=== PATIENT | female | born 1975 | race American Indian/Alaskan Native ===

== ENCOUNTER 2018-10-20 17:34 | Inpatient (IN) | payer SELFPAY ==
--- NOTE | 2018-10-20 17:45 | Emergency Department Report ---
Blank Doc - Documentation Documentation: This is a 43-year-old female that presents with chest pain, SOB, and bilateral leg swelling. This initial assessment/diagnostic orders/clinical plan/treatment(s) is/are subject to change based on patient's health status, clinical progression and re- assessment by fellow clinical providers in the ED. Further treatment and workup at subsequent clinical providers discretion. Patient/guardians urged not to elope from the ED as their condition may be serious if not clinically assessed and managed. Initial orders include: 1- Patient sent to MAIN ED for further evaluation and treatment 2- labs 3- EKG 4- CXR
[2018-10-20] MEDS ORDERED: PEPCID IV ONE (18:45)
[2018-10-20] MEDS ORDERED: NITROSTAT SL PRN (18:45)
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
[2018-10-20 19:05] LABS: INR 0.92 (0.87-1.13)
[2018-10-20 19:06] LABS: Partial Thromboplastin Time 26.9 Sec. (24.2-36.6)
[2018-10-20 19:08] LABS: Basophils % (Auto) 0.3 % (0.0-1.8); Eosinophils # (Auto) 0.2 K/mm3 (0.0-0.4); Eosinophils % (Auto) 1.9 % (0.0-4.3); Hematocrit 33.9 % (30.3-42.9); Hemoglobin 10.5 gm/dl (10.1-14.3); Lymphocytes % (Auto) 28.9 % (13.4-35.0); Mean Corpuscular HGB Conc 31 % (30-34); Mean Corpuscular Volume 75 fl (79-97); Monocytes # (Auto) 0.5 K/mm3 (0.0-0.8); Monocytes % (Auto) 4.9 % (0.0-7.3); Platelet Count 261 K/mm3 (140-440); Red Cell Distribution Width 17.8 % (13.2-15.2)
[2018-10-20 19:17] LABS: Alanine Aminotransferase 11 units/L (7-56); Albumin 3.2 g/dL (3.9-5); BUN/Creatinine Ratio 12; Blood Urea Nitrogen 7 mg/dL (7-17); Calcium 8.4 mg/dL (8.4-10.2); Hemolysis Index 10
[2018-10-20] MEDS ORDERED: TYLENOL PO ONE (20:26)
[2018-10-20] MEDS ORDERED: BABY ASPIRIN PO ONE (20:37)
[2018-10-20] MEDS ORDERED: LASIX IV ONE (20:37)
--- NOTE | 2018-10-20 20:43 | XRay Report ---
PROCEDURE: XR CHEST 1V AP TECHNIQUE: Chest radiograph single view. HISTORY: cp COMPARISONS: None . FINDINGS: Heart: Normal. Mediastinum/Vessels: Normal. Lungs/Pleural space: There are bilateral lower lobe infiltrates versus pulmonary edema. There is no pleural effusion or pneumothorax.. Bony thorax: No acute osseous abnormality. Life support devices: None. IMPRESSION: Heart size is normal.. There are bilateral lower lobe infiltrates versus pulmonary edema . There is no pleural effusion or pneumothorax.. This document is electronically signed by Kerwin Owens MD., Oct 20 2018 08:41:51 PM ET
--- NOTE | 2018-10-20 21:30 | Cat Scan Report ---
PROCEDURE: CT ANGIO CHEST TECHNIQUE: Computerized tomographic angiography of the chest was performed after the IV injection of iodinated nonionic contrast including image processing. The image data was postprocessed using 2-di mensional multiplanar reformatted (MPR) and 3-dimensional (MIP and/or volume rendered) techniques. Au tomated exposure control, adjustment of mA and/or kV according to patient size, or iterative reconstr uction dose optimization techniques were utilized. CT DOSE LENGTH PRODUCT: 967.7 mGycm HISTORY: near syncope cp sob COMPARISONS: None . FINDINGS: Heart and pericardium: Normal. Thoracic aorta: There is no thoracic aortic aneurysm or dissection.. Pulmonary vasculature: There is suboptimal contrast opacification of the pulmonary arteries. Distal p ulmonary emboli may not be visible. No obvious proximal emboli are seen.. Lymph nodes: No enlarged thoracic lymph nodes. Lungs: The lungs are expanded. There are no infiltrates, effusions or pneumothoraces.. Musculoskeletal structures: No significant abnormality. Upper abdominal structures: No significant abnormality. IMPRESSION: The heart size is normal. There is no thoracic aortic aneurysm or dissection.. There is suboptimal contrast opacification of the pulmonary arteries. Distal pulmonary emboli may not be visible. No obvious proximal emboli are seen.. The lungs are expanded. There are no infiltrates, effusions or pneumothoraces.. This document is electronically signed by Kerwin Owens MD., Oct 20 2018 09:28:18 PM ET
--- NOTE | 2018-10-20 21:32 | Cat Scan Report ---
PROCEDURE: CT head without contrast. TECHNIQUE: Computerized tomography of the head was performed without contrast material. CT DOSE LENGTH PRODUCT: 958 mGycm HISTORY: Near syncope. COMPARISONS: None. FINDINGS: The ventricles are normal in size. The medina matter and white matter appear normal. There are no mass lesions. There is no intracranial hemorrhage. The calvarium appears intact. The mastoid air cells and paranasal sinuses are well aerated. IMPRESSION: Normal study. This document is electronically signed by Teddy Roach MD., Oct 20 2018 09:30:11 PM ET
[2018-10-20] MEDS ORDERED: DILAUDID IV PRN (22:21)
[2018-10-20] MEDS ORDERED: SODIUM CHLORIDE FLUSH SYRINGE 10 ML IV PRN (22:21)
[2018-10-20] MEDS ORDERED: PERCOCET 5/325 PO PRN (22:21)
[2018-10-20] MEDS ORDERED: AMBIEN PO PRN (22:21)
[2018-10-20] MEDS ORDERED: TYLENOL PO PRN (22:21)
[2018-10-20] MEDS ORDERED: ZOFRAN IV PRN (22:21)
--- NOTE | 2018-10-20 22:56 | History and Physical Report ---
History of Present Illness Date of examination: 10/20/18 Chief complaint: "I almost passed out" History of present illness: Patient is a 43-year-old -[place] female with history of chronic lower back pain and morbid obesity who presented to the ED on account of near syncope. She has associated left-sided chest pain, shortness of breath, bilateral leg swelling with pain, dry cough, diaphoresis, headaches and dizziness. She denies fever, chills, orthopnea or PND. Past History Past Medical History: other (chronic lower back pain, morbid obesity) Past Surgical History: Other (ovarian cyst removal) Social history: no significant social history (patient denies tobacco, alcohol or illicit drug use) Family history: other (grandmother of heart attack at 85 years old) Medications and Allergies Allergies Allergy/AdvReac Type Severity Reaction Status Date / Time No Known Allergies Allergy Verified 10/20/18 22:40 Active Meds: Active Medications Acetaminophen (Tylenol) 650 mg PO Q4H PRN PRN Reason: Pain MILD(1-3)/Fever >100.5/AZAR Docusate Sodium (Colace) 100 mg PO BID JOELLE Enoxaparin Sodium (Lovenox) 40 mg SUB-Q QDAY JOELLE Famotidine (Pepcid) 20 mg PO DAILY JOELLE Hydromorphone HCl (Dilaudid) 0.5 mg IV Q3H PRN PRN Reason: Pain , Severe (7-10) Nitroglycerin (Nitrostat) 0.4 mg SL .Q5MIN PRN PRN Reason: Chest Pain Last Admin: 10/20/18 20:50 Dose: 0.4 mg Documented by: Ondansetron HCl (Zofran) 4 mg IV Q8H PRN PRN Reason: Nausea And Vomiting Oxycodone/Acetaminophen (Percocet 5/325) 1 tab PO Q6H PRN PRN Reason: Pain, Moderate (4-6) Sodium Chloride (Sodium Chloride Flush Syringe 10 Ml) 10 ml IV BID JOELLE Sodium Chloride (Sodium Chloride Flush Syringe 10 Ml) 10 ml IV PRN PRN PRN Reason: LINE FLUSH Zolpidem Tartrate (Ambien) 5 mg PO QHS PRN PRN Reason: Insomnia Review of Systems All systems: negative (except as documented in the HPI, 14 point system reviewed were negative) Exam - Constitutional Vitals: Temp Pulse Resp BP Pulse Ox 98.4 F 79 13 151/82 97 10/20/18 19:06 10/20/18 20:30 10/20/18 21:16 10/20/18 21:31 10/20/18 21:31 General appearance: Present: no acute distress - EENT Eyes: Present: PERRL, EOM intact ENT: hearing intact, clear oral mucosa - Neck Neck: Present: supple, normal ROM - Respiratory Respiratory effort: normal Respiratory: bilateral: CTA - Cardiovascular Rhythm: regular Heart Sounds: Present: S1 & S2 - Extremities Extremity abnormal: edema (in bilateral lower extremities) - Abdominal General gastrointestinal: Present: soft, non-tender, normal bowel sounds Female genitourinary: Present: deferred - Rectal Rectal Exam: deferred - Integumentary Integumentary: Present: clear, warm, dry - Musculoskeletal Musculoskeletal: strength equal bilaterally - Psychiatric Psychiatric: appropriate mood/affect, intact judgment & insight - Neurologic Neurologic: CNII-XII intact Results - Labs CBC & Chem 7: 10/20/18 18:34 10/20/18 18:34 Labs: Laboratory Last Values WBC 10.3 K/mm3 (4.5-11.0) 10/20/18 18:34 RBC 4.50 M/mm3 (3.65-5.03) 10/20/18 18:34 Hgb 10.5 gm/dl (10.1-14.3) 10/20/18 18:34 Hct 33.9 % (30.3-42.9) 10/20/18 18:34 MCV 75 fl (79-97) L 10/20/18 18:34 MCH 23 pg (28-32) L 10/20/18 18:34 MCHC 31 % (30-34) 10/20/18 18:34 RDW 17.8 % (13.2-15.2) H 10/20/18 18:34 Plt Count 261 K/mm3 (140-440) 10/20/18 18:34 Lymph % (Auto) 28.9 % (13.4-35.0) 10/20/18 18:34 Story % (Auto) 4.9 % (0.0-7.3) 10/20/18 18:34 Eos % (Auto) 1.9 % (0.0-4.3) 10/20/18 18:34 Baso % (Auto) 0.3 % (0.0-1.8) 10/20/18 18:34 Lymph # 3.0 K/mm3 (1.2-5.4) 10/20/18 18:34 Story # 0.5 K/mm3 (0.0-0.8) 10/20/18 18:34 Eos # 0.2 K/mm3 (0.0-0.4) 10/20/18 18:34 Baso # 0.0 K/mm3 (0.0-0.1) 10/20/18 18:34 Seg Neutrophils % 64.0 % (40.0-70.0) 10/20/18 18:34 Seg Neutrophils # 6.6 K/mm3 (1.8-7.7) 10/20/18 18:34 PT 12.9 Sec. (12.2-14.9) 10/20/18 18:34 INR 0.92 (0.87-1.13) 10/20/18 18:34 APTT 26.9 Sec. (24.2-36.6) 10/20/18 18:34 Sodium 139 mmol/L (137-145) 10/20/18 18:34 Potassium 3.6 mmol/L (3.6-5.0) 10/20/18 18:34 Chloride 97.2 mmol/L (98-107) L 10/20/18 18:34 Carbon Dioxide 31 mmol/L (22-30) H 10/20/18 18:34 14 mmol/L 10/20/18 18:34 BUN 7 mg/dL (7-17) 10/20/18 18:34 0.6 mg/dL (0.7-1.2) L 10/20/18 18:34 Estimated GFR > 60 ml/min 10/20/18 18:34 12 % 10/20/18 18:34 Glucose 119 mg/dL (65-100) H 10/20/18 18:34 Calcium 8.4 mg/dL (8.4-10.2) 10/20/18 18:34 0.20 mg/dL (0.1-1.2) 10/20/18 18:34 AST 14 units/L (5-40) 10/20/18 18:34 ALT 11 units/L (7-56) 10/20/18 18:34 112 units/L (35-129) 10/20/18 18:34 < 0.010 ng/mL (0.00-0.029) 10/20/18 21:16 NT-Pro-B Natriuret Pep 45.99 pg/mL (0-450) 10/20/18 18:34 7.0 g/dL (6.3-8.2) 10/20/18 18:34 3.2 g/dL (3.9-5) L 10/20/18 18:34 0.8 % 10/20/18 18:34 HCG, Qual Negative (Negative) 10/20/18 18:34 Assessment and Plan Assessment and plan: Chest pain, rule out ACS -On chest pain pathway -CTA chest negative for PE -Further investigative testing with stress test Bilateral leg swelling with pain -Venous ultrasound to assess for DVT Dyspnea on exertion -Echocardiogram to assess EF and valvular function Chronic lower back pain -On when necessary narcotics Morbid obesity with BMI of 55.8 -Lifestyle modification recommended DVT prophylaxis with Lovenox Disposition: Patient will be placed on observation status pending further evaluation Time spent: 35 minutes
[2018-10-21 03:12] LABS: Chol/HDL Ratio 2.87 %
[2018-10-21] MEDS: BABY ASPIRIN PO SCH (09:34)
[2018-10-21] MEDS: COLACE PO SCH ×2 (09:34→21:33)
[2018-10-21] MEDS: LOVENOX SUB-Q SCH (09:35)
[2018-10-21] MEDS: SODIUM CHLORIDE FLUSH SYRINGE 10 ML IV SCH ×2 (09:35→21:33)
[2018-10-21] MEDS ORDERED: PROTONIX PO SCH (10:00)
[2018-10-21] MEDS ORDERED: PEPCID PO SCH (10:00)
--- NOTE | 2018-10-21 10:47 | Consultation ---
History of Present Illness Consult date: 10/21/18 Consult reason: chest pain History of present illness: This is a 43 year old morbidly obese woman who presented with complaints of shortness of breath, lower extremity edema, chest pain and weakness. Symptoms has been intermittent for several days. She denies palpitations and there was no syncope. Patient has no prior medical history and does not take any medications. CT scan of the brain is negative. CT scan of the chest reports suboptimal opacification but negative for large pulmonary embolus. Cycled enzymes were normal and her ECG is benign. Patient was admitted for further evaluation and ordered to undergo a thallium stress test today which was cancelled. Patient's weight and girth exceed the table and camera limits. Cardiac consultation has been requested. Past History Past Medical History: other (chronic lower back pain, morbid obesity) Past Surgical History: Other (ovarian cyst removal) Social history: no significant social history (patient denies tobacco, alcohol or illicit drug use) Family history: other (grandmother of heart attack at 85 years old) Medications and Allergies Allergies Allergy/AdvReac Type Severity Reaction Status Date / Time No Known Allergies Allergy Verified 10/20/18 22:40 Active Meds: Active Medications Acetaminophen (Tylenol) 650 mg PO Q4H PRN PRN Reason: Pain MILD(1-3)/Fever >100.5/AZAR Aspirin (Baby Aspirin) 81 mg PO QDAY [facility] Last Admin: 10/21/18 09:34 Dose: 81 mg Documented by: Docusate Sodium (Colace) 100 mg PO BID [facility] Last Admin: 10/21/18 09:34 Dose: 100 mg Documented by: Enoxaparin Sodium (Lovenox) 40 mg SUB-Q QDAY [facility] Last Admin: 10/21/18 09:35 Dose: 40 mg Documented by: Hydromorphone HCl (Dilaudid) 0.5 mg IV Q3H PRN PRN Reason: Pain , Severe (7-10) Nitroglycerin (Nitrostat) 0.4 mg SL .Q5MIN PRN PRN Reason: Chest Pain Last Admin: 10/20/18 20:50 Dose: 0.4 mg Documented by: Ondansetron HCl (Zofran) 4 mg IV Q8H PRN PRN Reason: Nausea And Vomiting Oxycodone/Acetaminophen (Percocet 5/325) 1 tab PO Q6H PRN PRN Reason: Pain, Moderate (4-6) Sodium Chloride (Sodium Chloride Flush Syringe 10 Ml) 10 ml IV BID JOELLE Last Admin: 10/21/18 09:35 Dose: 10 ml Documented by: Sodium Chloride (Sodium Chloride Flush Syringe 10 Ml) 10 ml IV PRN PRN PRN Reason: LINE FLUSH Zolpidem Tartrate (Ambien) 5 mg PO QHS PRN PRN Reason: Insomnia Physical Examination Vital Signs Temp Pulse Resp BP Pulse Ox 98.8 F 102 H 16 145/72 96 10/20/18 17:40 10/20/18 17:40 10/20/18 17:40 10/20/18 17:40 10/20/18 17:40 General appearance: no acute distress, obese HEENT: Positive: PERRL Cardiac: Positive: Reg Rate and Rhythm Lungs: Positive: Decreased Breath Sounds Neuro: Positive: Grossly Intact Results 10/20/18 18:34 10/20/18 18:34 Cardiac Enzymes 10/20/18 Range/Units 18:34 AST 14 (5-40) units/L Coagulation 10/20/18 Range/Units 18:34 PT 12.9 (12.2-14.9) Sec. INR 0.92 (0.87-1.13) APTT 26.9 (24.2-36.6) Sec. Lipids 10/21/18 Range/Units 02:16 Triglycerides 43 (2-149) mg/dL Cholesterol 138 (50-199) mg/dL HDL Cholesterol 48 (40-59) mg/dL Cholesterol/HDL Ratio 2.87 % CBC 10/20/18 Range/Units 18:34 WBC 10.3 (4.5-11.0) K/mm3 RBC 4.50 (3.65-5.03) M/mm3 Hgb 10.5 (10.1-14.3) gm/dl Hct 33.9 (30.3-42.9) % Plt Count 261 (140-440) K/mm3 Lymph # 3.0 (1.2-5.4) K/mm3 [place] # 0.5 (0.0-0.8) K/mm3 Eos # 0.2 (0.0-0.4) K/mm3 Baso # 0.0 (0.0-0.1) K/mm3 Comprehensive Metabolic Panel 10/20/18 Range/Units 18:34 Sodium 139 (137-145) mmol/L Potassium 3.6 (3.6-5.0) mmol/L Chloride 97.2 L (98-107) mmol/L Carbon Dioxide 31 H (22-30) mmol/L BUN 7 (7-17) mg/dL Creatinine 0.6 L (0.7-1.2) mg/dL Glucose 119 H (65-100) mg/dL Calcium 8.4 (8.4-10.2) mg/dL AST 14 (5-40) units/L ALT 11 (7-56) units/L Alkaline Phosphatase 112 (35-129) units/L Total Protein 7.0 (6.3-8.2) g/dL Albumin 3.2 L (3.9-5) g/dL Assessment and Plan Shortness of breath CT scan of the brain is negative. CT scan of the chest reports suboptimal opacification but negative for large pulmonary embolus. Chest pain patient's weight and girth exceed the table and camera limits for stress test. Morbidly obese We will obtain an echocardiogram for LVEF assessment.
--- NOTE | 2018-10-21 12:41 | Progress Note ---
Assessment and Plan Assessment and plan: Chest pain, -Continue On chest pain pathway -CTA chest negative for PE -Cardiology consultation. Bilateral leg swelling with pain -Venous ultrasound pending to assess for DVT Dyspnea on exertion -Echocardiogram to assess EF, valvular function and rule out pulm hypertension Chronic lower back pain -On when necessary narcotics Morbid obesity with BMI of 55.8 -Lifestyle modification recommended Right back abscess. Surgery consultation. DVT prophylaxis with Lovenox Disposition: Patient will be placed on observation status pending further evaluation History Interval history: Pt states that she feels better, less SOB Hospitalist Physical - Constitutional Vitals: Temp Pulse Resp BP Pulse Ox 98.0 F 73 20 131/79 97 10/21/18 11:57 10/21/18 11:57 10/21/18 11:57 10/21/18 11:57 10/21/18 11:57 General appearance: Present: no acute distress, obese - EENT Eyes: Present: PERRL, EOM intact ENT: hearing intact, clear oral mucosa, dentition normal - Neck Neck: Present: supple, normal ROM - Respiratory Respiratory effort: normal Respiratory: bilateral: CTA - Cardiovascular Rhythm: regular Heart Sounds: Present: S1 & S2. Absent: gallop, rub - Extremities Extremities: no ischemia, No edema, Full ROM - Abdominal General gastrointestinal: soft, non-tender, non-distended, normal bowel sounds - Integumentary Integumentary: Present: clear, warm, dry - Neurologic Neurologic: CNII-XII intact, moves all extremities Results - Labs CBC & Chem 7: 10/20/18 18:34 10/20/18 18:34 Labs: Laboratory Last Values WBC 10.3 K/mm3 (4.5-11.0) 10/20/18 18:34 RBC 4.50 M/mm3 (3.65-5.03) 10/20/18 18:34 Hgb 10.5 gm/dl (10.1-14.3) 10/20/18 18:34 Hct 33.9 % (30.3-42.9) 10/20/18 18:34 MCV 75 fl (79-97) L 10/20/18 18:34 MCH 23 pg (28-32) L 10/20/18 18:34 MCHC 31 % (30-34) 10/20/18 18:34 RDW 17.8 % (13.2-15.2) H 10/20/18 18:34 Plt Count 261 K/mm3 (140-440) 10/20/18 18:34 Lymph % (Auto) 28.9 % (13.4-35.0) 10/20/18 18:34 [place] % (Auto) 4.9 % (0.0-7.3) 10/20/18 18:34 Eos % (Auto) 1.9 % (0.0-4.3) 10/20/18 18:34 Baso % (Auto) 0.3 % (0.0-1.8) 10/20/18 18:34 Lymph # 3.0 K/mm3 (1.2-5.4) 10/20/18 18:34 [place] # 0.5 K/mm3 (0.0-0.8) 10/20/18 18:34 Eos # 0.2 K/mm3 (0.0-0.4) 10/20/18 18:34 Baso # 0.0 K/mm3 (0.0-0.1) 10/20/18 18:34 Seg Neutrophils % 64.0 % (40.0-70.0) 10/20/18 18:34 Seg Neutrophils # 6.6 K/mm3 (1.8-7.7) 10/20/18 18:34 PT 12.9 Sec. (12.2-14.9) 10/20/18 18:34 INR 0.92 (0.87-1.13) 10/20/18 18:34 APTT 26.9 Sec. (24.2-36.6) 10/20/18 18:34 Sodium 139 mmol/L (137-145) 10/20/18 18:34 Potassium 3.6 mmol/L (3.6-5.0) 10/20/18 18:34 Chloride 97.2 mmol/L (98-107) L 10/20/18 18:34 Carbon Dioxide 31 mmol/L (22-30) H 10/20/18 18:34 14 mmol/L 10/20/18 18:34 BUN 7 mg/dL (7-17) 10/20/18 18:34 0.6 mg/dL (0.7-1.2) L 10/20/18 18:34 Estimated GFR > 60 ml/min 10/20/18 18:34 12 % 10/20/18 18:34 Glucose 119 mg/dL (65-100) H 10/20/18 18:34 Calcium 8.4 mg/dL (8.4-10.2) 10/20/18 18:34 0.20 mg/dL (0.1-1.2) 10/20/18 18:34 AST 14 units/L (5-40) 10/20/18 18:34 ALT 11 units/L (7-56) 10/20/18 18:34 112 units/L (35-129) 10/20/18 18:34 < 0.010 ng/mL (0.00-0.029) 10/21/18 02:16 NT-Pro-B Natriuret Pep 45.99 pg/mL (0-450) 10/20/18 18:34 7.0 g/dL (6.3-8.2) 10/20/18 18:34 3.2 g/dL (3.9-5) L 10/20/18 18:34 0.8 % 10/20/18 18:34 Triglycerides 43 mg/dL (2-149) 10/21/18 02:16 Cholesterol 138 mg/dL (50-199) 10/21/18 02:16 87 mg/dL (50-130) 10/21/18 02:16 48 mg/dL (40-59) 10/21/18 02:16 2.87 % 10/21/18 02:16 HCG, Qual Negative (Negative) 10/20/18 18:34 Active Medications - Current Medications Current Medications: Generic Name Dose Route Start Last Admin Trade Name Freq PRN Reason Stop Dose Admin Acetaminophen 650 mg 10/20/18 22:21 Tylenol PO Q4H PRN Pain MILD(1-3)/Fever >100.5/AZAR Aspirin 81 mg 10/21/18 10:00 10/21/18 09:34 Baby Aspirin PO 81 mg QDAY JOELLE Administration Docusate Sodium 100 mg 10/21/18 10:00 10/21/18 09:34 Colace PO 100 mg BID JOELLE Administration Enoxaparin Sodium 40 mg 10/21/18 10:00 10/21/18 09:35 Lovenox SUB-Q 40 mg QDAY JOELLE Administration Hydromorphone HCl 0.5 mg 10/20/18 22:21 Dilaudid IV Q3H PRN Pain , Severe (7-10) Nitroglycerin 0.4 mg 10/20/18 18:45 10/20/18 20:50 Nitrostat SL 0.4 mg .Q5MIN PRN Administration Chest Pain Ondansetron HCl 4 mg 10/20/18 22:21 Zofran IV Q8H PRN Nausea And Vomiting Oxycodone/Acetaminophen 1 tab 10/20/18 22:21 Percocet 5/325 PO Q6H PRN Pain, Moderate (4-6) Sodium Chloride 10 ml 10/21/18 10:00 10/21/18 09:35 Sodium Chloride Flush Syringe 10 Ml IV 10 ml BID JOELLE Administration Sodium Chloride 10 ml 10/20/18 22:21 Sodium Chloride Flush Syringe 10 Ml IV PRN PRN LINE FLUSH Zolpidem Tartrate 5 mg 10/20/18 22:21 Ambien PO QHS PRN Insomnia
--- NOTE | 2018-10-21 13:43 | Vascular Lab Report ---
PROCEDURE: VL VENOUS DUPLEX LE BILAT TECHNIQUE: Reyes scale, color and pulsed Doppler ultrasound with color flow and spectral analysis eval uation of both lower extremities were performed to assess for deep vein thrombosis. HISTORY: bilateral leg swelling with pain COMPARISONS: None currently available. FINDINGS: Unable to visualize bilateral superficial femoral and calf veins due to patient body habitus Soft tissue swelling. RIGHT extremity: Otherwise, there is normal grayscale appearance and compressibility. Normal phasic pulsed Doppler and normal color Doppler flow are visualized. The interrogated vessels show normal augmentation. LEFT extremity: Otherwise, there is normal grayscale appearance and compressibility. Normal phasic pulsed Doppler and normal color Doppler flow are visualized. The interrogated vessels show normal augmentation. IMPRESSION: * Bilateral superficial femoral and calf veins are not adequately visualized and DVT is not excluded in these vessels. * Otherwise, no evidence for DVT on this limited exam. This document is electronically signed by Carlos Ascencio MD., Oct 21 2018 01:40:21 PM ET
[2018-10-21] MEDS: ZOSYN/NS 4.5GM/100ML 4.5 GM/100 ML VIAL IV SCH ×3 (14:58→21:33)
--- NOTE | 2018-10-21 15:51 | Event Note ---
Date: 10/21/18 Attempted to see patient for consult. She is off the floor for echo. Vital signs are stable. WBC is normal. Will return to see tomorrow.
[2018-10-21] MEDS ORDERED: K-DUR PO ONE (22:43)
[2018-10-21] MEDS ORDERED: LASIX IV ONE (23:25)
[2018-10-22] MEDS: ZOSYN/NS 4.5GM/100ML 4.5 GM/100 ML VIAL IV SCH ×3 (05:35→22:01)
--- NOTE | 2018-10-22 09:18 | Progress Note ---
Assessment and Plan Shortness of breath CT scan of the brain is negative. CT scan of the chest reports suboptimal opacification but negative for large pulmonary embolus. Chest pain patient's weight and girth exceed the table and camera limits for stress test. Morbidly obese Underlying sleep apnea An echocardiogram this admission reports a normal left ventricular systolic function, EF 55-60%. Recommend: Outpatient cardiac PET scan for ischemic cardiac evaluation. Subjective Date of service: 10/22/18 Interval history: 3 second pause noted on telemetry. It appears transient ventricular pause happened during hours of sleep. There were no reports of chest pain, shortness of breath or palpitations, not on any slowing medications causing the transient pause. Patient returned to a stable sinus rhythm and had no further episodes. Objective Vital Signs Temp Pulse Resp BP BP Pulse Ox 10/22/18 09:00 97.8 F 89 18 151/65 94 10/22/18 04:11 97.9 F 96 H 20 137/50 93 10/22/18 01:36 97.7 F 94 H 20 144/65 95 10/22/18 01:00 87 10/21/18 23:00 18 10/21/18 19:06 98.1 F 90 16 116/87 96 10/21/18 17:34 98.5 F 91 H 18 126/46 97 10/21/18 11:57 98.0 F 73 20 131/79 97 - Physical Examination General: No Apparent Distress HEENT: Positive: PERRL Cardiac: Positive: Reg Rate and Rhythm Neuro: Positive: Grossly Intact
--- NOTE | 2018-10-22 10:23 | Progress Note ---
Assessment and Plan Assessment and plan: Chest pain, -Patient unable to undergo stress test due to body habitus. -CTA chest negative for PE -Cardiology following. Bilateral leg swelling with pain -No evidence of DVT on limited exam Dyspnea on exertion -An echocardiogram this admission reports a normal left ventricular systolic function, EF 55-60%. Chronic lower back pain -On when necessary narcotics Morbid obesity with BMI of 55.8 -Lifestyle modification recommended Right back abscess. Surgery consulted. DVT prophylaxis with Lovenox Disposition: Patient will be placed on observation status pending further evaluation History Interval history: Pt states that she feels better, less SOB Hospitalist Physical - Constitutional Vitals: Temp Pulse Resp BP Pulse Ox 97.8 F 89 18 151/65 94 10/22/18 09:00 10/22/18 09:00 10/22/18 09:00 10/22/18 09:00 10/22/18 09:00 General appearance: Present: no acute distress, obese - EENT Eyes: Present: PERRL, EOM intact ENT: hearing intact, clear oral mucosa, dentition normal - Neck Neck: Present: supple, normal ROM - Respiratory Respiratory effort: normal Respiratory: bilateral: CTA - Cardiovascular Rhythm: regular Heart Sounds: Present: S1 & S2. Absent: gallop, rub - Extremities Extremities: no ischemia, No edema, Full ROM - Abdominal General gastrointestinal: soft, non-tender, non-distended, normal bowel sounds - Integumentary Integumentary: Present: clear, warm, dry - Neurologic Neurologic: CNII-XII intact, moves all extremities Results - Labs CBC & Chem 7: 10/20/18 18:34 10/20/18 18:34 Labs: Laboratory Last Values WBC 10.3 K/mm3 (4.5-11.0) 10/20/18 18:34 RBC 4.50 M/mm3 (3.65-5.03) 10/20/18 18:34 Hgb 10.5 gm/dl (10.1-14.3) 10/20/18 18:34 Hct 33.9 % (30.3-42.9) 10/20/18 18:34 MCV 75 fl (79-97) L 10/20/18 18:34 MCH 23 pg (28-32) L 10/20/18 18:34 MCHC 31 % (30-34) 10/20/18 18:34 RDW 17.8 % (13.2-15.2) H 10/20/18 18:34 Plt Count 261 K/mm3 (140-440) 10/20/18 18:34 Lymph % (Auto) 28.9 % (13.4-35.0) 10/20/18 18:34 [place] % (Auto) 4.9 % (0.0-7.3) 10/20/18 18:34 Eos % (Auto) 1.9 % (0.0-4.3) 10/20/18 18:34 Baso % (Auto) 0.3 % (0.0-1.8) 10/20/18 18:34 Lymph # 3.0 K/mm3 (1.2-5.4) 10/20/18 18:34 [place] # 0.5 K/mm3 (0.0-0.8) 10/20/18 18:34 Eos # 0.2 K/mm3 (0.0-0.4) 10/20/18 18:34 Baso # 0.0 K/mm3 (0.0-0.1) 10/20/18 18:34 Seg Neutrophils % 64.0 % (40.0-70.0) 10/20/18 18:34 Seg Neutrophils # 6.6 K/mm3 (1.8-7.7) 10/20/18 18:34 PT 12.9 Sec. (12.2-14.9) 10/20/18 18:34 INR 0.92 (0.87-1.13) 10/20/18 18:34 APTT 26.9 Sec. (24.2-36.6) 10/20/18 18:34 Sodium 139 mmol/L (137-145) 10/20/18 18:34 Potassium 3.6 mmol/L (3.6-5.0) 10/20/18 18:34 Chloride 97.2 mmol/L (98-107) L 10/20/18 18:34 Carbon Dioxide 31 mmol/L (22-30) H 10/20/18 18:34 14 mmol/L 10/20/18 18:34 BUN 7 mg/dL (7-17) 10/20/18 18:34 0.6 mg/dL (0.7-1.2) L 10/20/18 18:34 Estimated GFR > 60 ml/min 10/20/18 18:34 12 % 10/20/18 18:34 Glucose 119 mg/dL (65-100) H 10/20/18 18:34 Calcium 8.4 mg/dL (8.4-10.2) 10/20/18 18:34 0.20 mg/dL (0.1-1.2) 10/20/18 18:34 AST 14 units/L (5-40) 10/20/18 18:34 ALT 11 units/L (7-56) 10/20/18 18:34 112 units/L (35-129) 10/20/18 18:34 < 0.010 ng/mL (0.00-0.029) 10/21/18 02:16 NT-Pro-B Natriuret Pep 45.99 pg/mL (0-450) 10/20/18 18:34 7.0 g/dL (6.3-8.2) 10/20/18 18:34 3.2 g/dL (3.9-5) L 10/20/18 18:34 0.8 % 10/20/18 18:34 Triglycerides 43 mg/dL (2-149) 10/21/18 02:16 Cholesterol 138 mg/dL (50-199) 10/21/18 02:16 87 mg/dL (50-130) 10/21/18 02:16 48 mg/dL (40-59) 10/21/18 02:16 2.87 % 10/21/18 02:16 HCG, Qual Negative (Negative) 10/20/18 18:34 Active Medications - Current Medications Current Medications: Generic Name Dose Route Start Last Admin Trade Name Freq PRN Reason Stop Dose Admin Acetaminophen 650 mg 10/20/18 22:21 Tylenol PO Q4H PRN Pain MILD(1-3)/Fever >100.5/AZAR Aspirin 81 mg 10/21/18 10:00 10/21/18 09:34 Baby Aspirin PO 81 mg QDAY JOELLE Administration Docusate Sodium 100 mg 10/21/18 10:00 10/21/18 21:33 Colace PO 100 mg BID JOELLE Administration Enoxaparin Sodium 40 mg 10/21/18 10:00 05/30/19 09:35 Lovenox SUB-Q 40 mg QDAY JOELLE Administration Furosemide 20 mg 10/22/18 10:00 Lasix IV QDAY JOELLE Hydromorphone HCl 0.5 mg 10/20/18 22:21 Dilaudid IV Q3H PRN Pain , Severe (7-10) Piperacillin Sod/Tazobactam Sod 4.5 gm in 100 mls @ 200 mls/hr 10/21/18 14:00 10/22/18 05:35 Zosyn/Ns 4.5gm/100ml IV 200 mls/hr Q8HR JOELLE Administration Protocol Nitroglycerin 0.4 mg 10/20/18 18:45 10/20/18 20:50 Nitrostat SL 0.4 mg .Q5MIN PRN Administration Chest Pain Ondansetron HCl 4 mg 10/20/18 22:21 Zofran IV Q8H PRN Nausea And Vomiting Oxycodone/Acetaminophen 1 tab 10/20/18 22:21 Percocet 5/325 PO Q6H PRN Pain, Moderate (4-6) Potassium Chloride 20 meq 10/22/18 10:00 K-Dur PO QDAY JOELLE Sodium Chloride 10 ml 10/21/18 10:00 10/21/18 21:33 Sodium Chloride Flush Syringe 10 Ml IV 10 ml BID JOELLE Administration Sodium Chloride 10 ml 10/20/18 22:21 Sodium Chloride Flush Syringe 10 Ml IV PRN PRN LINE FLUSH Zolpidem Tartrate 5 mg 10/20/18 22:21 Ambien PO QHS PRN Insomnia
[2018-10-22] MEDS: LOVENOX SUB-Q SCH (10:32)
[2018-10-22] MEDS: COLACE PO SCH ×2 (10:33→22:00)
[2018-10-22] MEDS: BABY ASPIRIN PO SCH (10:33)
[2018-10-22] MEDS: K-DUR PO SCH (10:33)
[2018-10-22] MEDS: LASIX IV SCH (10:34)
[2018-10-22] MEDS ORDERED: XYLOCAINE 1% 20 mL INFILTRATI ONE (11:14)
--- NOTE | 2018-10-22 11:49 | Consultation ---
History of Present Illness Consult date: 10/22/18 Chief complaint: back abscess - History of present illness History of present illness: 43 yo F with PMHx of morbid obesity, HTN presented to ER with c/o chest pain, SOB, leg swelling, and not feeling well. She states she recently joined the gym and was working outside in the heat prior to the start of the symptoms. She was admitted for further w/u. After admission, a boil was noted on the patient's back. She is unsure how long it has been there and never noticed it before. She states it was tender but feels much better now and the swelling is almost completely resolved. No f/c. Past History Past Medical History: other (chronic lower back pain, morbid obesity) Past Surgical History: Other (ovarian cyst removal) Social history: no significant social history (patient denies tobacco, alcohol or illicit drug use) Family history: other (grandmother of heart attack at 85 years old) Medications and Allergies Allergies Allergy/AdvReac Type Severity Reaction Status Date / Time No Known Allergies Allergy Verified 10/20/18 22:40 Home Medications Medication Instructions Recorded Confirmed Last Taken Type No Known Home Medications [No 10/21/18 10/21/18 Unknown History Reported Home Medications] Active Meds: Active Medications Acetaminophen (Tylenol) 650 mg PO Q4H PRN PRN Reason: Pain MILD(1-3)/Fever >100.5/AZAR Aspirin (Baby Aspirin) 81 mg PO QDAY [facility] Last Admin: 10/22/18 10:33 Dose: 81 mg Documented by: Docusate Sodium (Colace) 100 mg PO BID [facility] Last Admin: 10/22/18 10:33 Dose: 100 mg Documented by: Enoxaparin Sodium (Lovenox) 40 mg SUB-Q QDAY [facility] Last Admin: 10/22/18 10:32 Dose: 40 mg Documented by: Furosemide (Lasix) 20 mg IV QDAY [facility] Last Admin: 10/22/18 10:34 Dose: 20 mg Documented by: Hydromorphone HCl (Dilaudid) 0.5 mg IV Q3H PRN PRN Reason: Pain , Severe (7-10) Piperacillin Sod/Tazobactam Sod (Zosyn/Ns 4.5gm/100ml) 4.5 gm in 100 mls @ 200 mls/hr IV Q8HR [facility]; Protocol Last Admin: 10/22/18 05:35 Dose: 200 mls/hr Documented by: Nitroglycerin (Nitrostat) 0.4 mg SL .Q5MIN PRN PRN Reason: Chest Pain Last Admin: 10/20/18 20:50 Dose: 0.4 mg Documented by: Ondansetron HCl (Zofran) 4 mg IV Q8H PRN PRN Reason: Nausea And Vomiting Oxycodone/Acetaminophen (Percocet 5/325) 1 tab PO Q6H PRN PRN Reason: Pain, Moderate (4-6) Potassium Chloride (K-Dur) 20 meq PO QDAY [facility] Last Admin: 10/22/18 10:33 Dose: 20 meq Documented by: Sodium Chloride (Sodium Chloride Flush Syringe 10 Ml) 10 ml IV BID [facility] Last Admin: 10/21/18 21:33 Dose: 10 ml Documented by: Sodium Chloride (Sodium Chloride Flush Syringe 10 Ml) 10 ml IV PRN PRN PRN Reason: LINE FLUSH Zolpidem Tartrate (Ambien) 5 mg PO QHS PRN PRN Reason: Insomnia Review of Systems All systems: negative (10 PT ROS performed and negative except for that listed in HPI) Exam Vital Signs Temp Pulse Resp BP Pulse Ox 98.8 F 102 H 16 145/72 96 10/20/18 17:40 10/20/18 17:40 10/20/18 17:40 10/20/18 17:40 10/20/18 17:40 Narrative exam: Gen: AAOx3. NAD CV: s1, S2+ resp; even and unlabored Ext: no c/c/e Back: 0.5 cm area of firmness in the mid right back. No fluctuance, induration, TTP, or erythema. No drainage. Results - Labs 10/20/18 18:34 10/20/18 18:34 Assessment and Plan 43 yo F with likely infected epidermal cyst of back, now resolved Plan 1. No surgical intervention required 2. OK to dc on 5 days of keflex - patient has been on 2 days of abx in hospital D/W Dr. Calix Thank you, please call with questions.
[2018-10-22] MEDS: SODIUM CHLORIDE FLUSH SYRINGE 10 ML IV SCH ×2 (20:35→22:02)
[2018-10-23] MEDS: ZOSYN/NS 4.5GM/100ML 4.5 GM/100 ML VIAL IV SCH (05:48)
--- NOTE | 2018-10-23 08:01 | Discharge Summary ---
Providers - Providers Date of Admission: 10/22/18 09:20 Date of discharge: 10/23/18 Attending physician: TOSHA LOPEZ 10/21/18 07:46 Consult to Cardiology [CONS] Routine Consulting Provider: HAN HULL Reason For Exam: cp 10/21/18 12:42 Consult to Physician [CONS] Routine Comment: Consulting Provider: KENY LINARES Physician Instructions: Reason For Exam: right back abscess [facility] Reason for admission: cp Condition: Good Hospital course: Patient is a 43-year-old -[place] female with history of chronic lower back pain and morbid obesity who presented to the ED on account of near syncope. She had associated left-sided chest pain, shortness of breath, bilateral leg swelling with pain, dry cough, diaphoresis, headaches and dizziness. She denied fever, chills, orthopnea or PND. The patient was admitted with diagnosis of chest pain, presyncope and acute hypoxic respiratory failure. Unfortunately, patient's weight precluded ischemic evaluation. However, patient underwent echocardiogram that revealed normal left ventricular ejection fraction. Cardiology was consulted and felt that further cardiac evaluation should be scheduled as an outpatient with a cardiac PET scan. Patient was noted to have obstructive sleep apnea with secondary ventricular pauses on telemetry. Her respiratory failure was likely related to MARCOS/OHS. CT scan was negative for PE. Patient will need further follow-up as an outpatient with possible sleep study. Patient was also noted to have a right upper back abscess/from a cold that resolved on its own. Surgery was consulted and felt that there was no need for intervention. Dedicated discharge time 32 minutes. Disposition: TO HOME OR SELFCARE Time spent for discharge: 32 - Discharge Diagnoses (1) Atypical chest pain Status: Acute (2) Abscess Status: Acute (3) Near syncope Status: Acute Core Measure Documentation - Palliative Care Palliative Care/ Comfort Measures: Not Applicable - Core Measures Any of the following diagnoses?: none Exam - Constitutional Vitals: Temp Pulse Resp BP Pulse Ox 97.4 F L 76 20 139/77 94 10/23/18 04:35 10/23/18 04:35 10/23/18 04:35 10/23/18 04:35 10/23/18 04:35 General appearance: Present: obese - EENT Eyes: Present: PERRL ENT: hearing intact, clear oral mucosa - Neck Neck: Present: supple, normal ROM - Respiratory Respiratory effort: normal Respiratory: bilateral: CTA - Cardiovascular Heart Sounds: Present: S1 & S2. Absent: rub, click - Extremities Extremities: pulses symmetrical, No edema Peripheral Pulses: within normal limits - Abdominal General gastrointestinal: Present: soft, non-tender, non-distended, normal bowel sounds Female genitourinary: Present: normal - Integumentary Integumentary: Present: clear, warm, dry - Musculoskeletal Musculoskeletal: gait normal, strength equal bilaterally - Psychiatric Psychiatric: appropriate mood/affect, intact judgment & insight - Neurologic Neurologic: CNII-XII intact, moves all extremities Plan Activity: advance as tolerated Weight Bearing Status: Full Weight Bearing Diet: low fat, low cholesterol, low salt Follow up with: JAMEL KENNEDY MD [Primary Care Provider] - 7 Days HAN HULL MD [Staff Physician] - 7 Days Prescriptions: Aspirin [Aspirin BABY CHEW TAB] 81 mg PO QDAY #30 tab.chew cephALEXin [Keflex] 500 mg PO Q12HR #10 cap oxyCODONE /ACETAMINOPHEN [Percocet 5/325 mg] 1 tab PO Q6H PRN #8 tablet PRN Reason: Pain, Moderate (4-6)
[2018-10-23 08:33] VITALS: BP 129/50
[2018-10-23] MEDS: K-DUR PO SCH (10:20)
[2018-10-23] MEDS: BABY ASPIRIN PO SCH (10:21)
[2018-10-23] MEDS: LOVENOX SUB-Q SCH (10:21)
[2018-10-23] MEDS: LASIX IV SCH (10:21)
[2018-10-23] MEDS: COLACE PO SCH (10:21)
[2018-10-23] MEDS: SODIUM CHLORIDE FLUSH SYRINGE 10 ML IV SCH (10:22)
== END 2018-10-23 12:25 | disposition home or self-care (01) | DRG 189 ==
LOC: ED 17:34 → 4A 22:21 → OBSVTOIN 10-22 09:20
PROVIDERS: ADMIT Internal Medicine; ATTEND Hospitalist
DX: J96.01 Acute respiratory failure with hypoxia (principal); L02.212 Cutaneous abscess of back [any part, except buttock and flank]; Z68.43 Body mass index [BMI] 50.0-59.9, adult; E66.2 Morbid (severe) obesity with alveolar hypoventilation; R55 Syncope and collapse; G89.29 Other chronic pain; M54.5 Low back pain; I87.2 Venous insufficiency (chronic) (peripheral); R07.9 Chest pain, unspecified; Z71.3 Dietary counseling and surveillance
CPT/HCPCS: 36415; 70450; 71045; 71275; 80053; 80061; 83880; 84484; 84703; 85025; 85610; 85730; 93005; 93010; 93306; 93970; 96374; G0378; J1650; J1940; J2543; Q9967

== ENCOUNTER 2018-11-09 22:36 | Emergency (ER) | payer SELFPAY ==
[2018-11-09 22:43] VITALS: BP 150/91
--- NOTE | 2018-11-09 22:47 | Event Note ---
ED Screening Note Date of service: 11/09/18 Time: 22:47 ED Screening Note: 43 y/o female c/o dif times 2 hours [employer]. This initial assessment/diagnostic orders/clinical plan/treatment(s) is/are subject to change based on patients health status, clinical progression and re- assessment by fellow clinical providers in the ED. Further treatment and workup at subsequent clinical providers discretion. Patient/guardian urged not to elope from the ED as their condition may be serious if not clinically assessed and managed. Initial orders include:
--- NOTE | 2018-11-09 23:33 | XRay Report ---
PROCEDURE: XR CHEST ROUTINE 2V TECHNIQUE: PA and lateral chest radiographs were obtained. HISTORY: diff breathing. COMPARISONS: October 20, 2018. FINDINGS: Heart: Normal. Mediastinum/Vessels: Normal. Lungs/Pleural space: Slight vascular congestion. No effusion or pneumothorax. Bony thorax: No acute osseous abnormality. IMPRESSION: There is slight vascular congestion. No consolidation or effusion. This document is electronically signed by Charis Augustin DO., November 09 2018 11:31:52 PM ET
[2018-11-10] MEDS ORDERED: LASIX PO ONE (01:29)
[2018-11-10 01:53] LABS: Basophils % (Auto) 0.2 % (0.0-1.8); Eosinophils # (Auto) 0.2 K/mm3 (0.0-0.4); Eosinophils % (Auto) 2.6 % (0.0-4.3); Hematocrit 34.4 % (30.3-42.9); Hemoglobin 10.6 gm/dl (10.1-14.3); Lymphocytes # (Auto) 2.9 K/mm3 (1.2-5.4); Lymphocytes % (Auto) 33.8 % (13.4-35.0); Mean Corpuscular HGB Conc 31 % (30-34); Mean Corpuscular Volume 76 fl (79-97); Monocytes # (Auto) 0.5 K/mm3 (0.0-0.8); Monocytes % (Auto) 5.4 % (0.0-7.3); Platelet Count 246 K/mm3 (140-440); Red Blood Count 4.54 M/mm3 (3.65-5.03); Red Cell Distribution Width 17.7 % (13.2-15.2)
[2018-11-10 02:03] LABS: INR 1.08 (0.87-1.13)
[2018-11-10 02:04] LABS: Partial Thromboplastin Time 27.9 Sec. (24.2-36.6)
[2018-11-10 02:19] LABS: Alanine Aminotransferase 10 units/L (7-56); Albumin 3.2 g/dL (3.9-5); BUN/Creatinine Ratio 18; Blood Urea Nitrogen 11 mg/dL (7-17); Calcium 8.8 mg/dL (8.4-10.2); Hemolysis Index 4
[2018-11-10] MEDS ORDERED: TORADOL ONE (02:54)
[2018-11-10] MEDS ORDERED: REGLAN ONE (02:54)
[2018-11-10] MEDS ORDERED: BENADRYL ONE (02:54)
[2018-11-10] MEDS ORDERED: REGLAN IV ONE (02:59)
[2018-11-10] MEDS ORDERED: TORADOL IV ONE (02:59)
[2018-11-10] MEDS ORDERED: BENADRYL IV ONE (02:59)
--- NOTE | 2018-11-10 03:04 | Emergency Department Report ---
<ALEA HINKLE - Last Filed: 11/10/18 04:56> ED Shortness of Breath HPI - General Chief Complaint: Dyspnea/Respdistress Stated Complaint: DIFF BREATHING Time Seen by Provider: 11/10/18 01:21 - Related Data Previous Rx's Medication Instructions Recorded Last Taken Type Aspirin [Aspirin BABY CHEW TAB] 81 mg PO QDAY #30 tab.chew 10/23/18 Unknown Rx cephALEXin [Keflex] 500 mg PO Q12HR #10 cap 10/23/18 Unknown Rx oxyCODONE /ACETAMINOPHEN [Percocet 1 tab PO Q6H PRN #8 tablet 10/23/18 Unknown Rx 5/325 mg] Furosemide [Lasix] 20 mg PO QDAY 7 Days #7 tablet 11/10/18 Unknown Rx Allergies Allergy/AdvReac Type Severity Reaction Status Date / Time ciprofloxacin [From Cipro] Allergy Unknown Verified 11/09/18 22:42 ED Past Medical Hx - Medications Home Medications: Home Medications Medication Instructions Recorded Confirmed Last Taken Type Aspirin [Aspirin BABY CHEW TAB] 81 mg PO QDAY #30 tab.chew 10/23/18 Unknown Rx cephALEXin [Keflex] 500 mg PO Q12HR #10 cap 10/23/18 Unknown Rx oxyCODONE /ACETAMINOPHEN [Percocet 1 tab PO Q6H PRN #8 tablet 10/23/18 Unknown Rx 5/325 mg] Furosemide [Lasix] 20 mg PO QDAY 7 Days #7 tablet 11/10/18 Unknown Rx ED Medical Decision Making - Lab Data Result diagrams: 11/10/18 01:33 11/10/18 01:33 - Medical Decision Making Pt is a 43yo female who presents to the ED with c/o SOB that began yesterday. She states [facility] and began feeling SOB shortly after and states that EMS personnel told her that several others had also been taken to the hospital for SOB. she states she has also had BLE edema for 2 weeks. she denies any cough or fever. she states when she was experiencing SOB she began to have chest pressure. she states it felt like "someone was sitting on her chest." she denies any recent long car or plane ride, recent surgery, OCP use. denies PMHx. she states that she was supposed to have a stress test performed but did not have it completed. Patient is x-rays unremarkable except for slight vascular congestion. Patient noted he had a CTA at 20 days ago which is negative for pulmonary embolism. I believe patient has symptoms is most likely related to obstructive sleep apnea with possible pulmonary hypertension. Patient received Lasix. Patient advised to follow-up with her primary care physician in the next 2-3 days. Patient is stable for discharge. ED Disposition Clinical Impression: SOB (shortness of breath), Chest pressure Disposition: TO HOME OR SELFCARE Condition: Stable Instructions: Chest Pain (ED) Additional Instructions: please take medication as prescribed. please follow up with a translator interpreter and financial engineer in the next 2-3 days. please follow up with a primary care doctor in the next 2-3 days. return to the emergency room for any new or worsening symptoms. Prescriptions: Furosemide [Lasix] 20 mg PO QDAY 7 Days #7 tablet Referrals: [facility] [Primary Care Provider] - 2-3 Days GENNA ZUÑIGA MD [Staff Physician] - 2-3 Days JOAN GUDINO MD [Staff Physician] - 2-3 Days Print Language: ECUADOREAN <ETHAN MANN - Last Filed: 11/10/18 05:01> ED Shortness of Breath HPI - General Source: patient Mode of arrival: Wheelchair Limitations: No Limitations - History of Present Illness Initial Comments: Pt is a 43yo female who presents to the ED with c/o SOB that began yesterday. She states that [facility] and began feeling SOB shortly after and states that EMS personnel told her that several others had also been taken to the hospital for SOB. she states she has also had BLE edema for 2 weeks. she denies any cough or fever. she states when she was experiencing SOB she began to have chest pressure. she states it felt like "someone was sitting on her chest." she denies any recent long car or plane ride, recent surgery, OCP use. denies PMHx. she states that she was supposed to have a stress test performed but did not have it completed. ED Review of Systems ROS: Stated complaint: DIFF BREATHING Other details as noted in HPI Comment: All other systems reviewed and negative ED Past Medical Hx - Past Medical History Previous Medical History?: No Hx Congestive Heart Failure: No Hx Diabetes: No Hx Asthma: No - Surgical History Past Surgical History?: No - Social History Smoking Status: Never Smoker ED Physical Exam - General Limitations: No Limitations General appearance: alert, in no apparent distress - Head Head exam: Present: atraumatic, normocephalic - Eye Eye exam: Present: normal appearance, PERRL - Respiratory Respiratory exam: Present: normal lung sounds bilaterally. Absent: respiratory distress, wheezes, rales, rhonchi, stridor, chest wall tenderness, accessory muscle use, decreased breath sounds, prolonged expiratory - Cardiovascular Cardiovascular Exam: Present: regular rate, normal rhythm, normal heart sounds. Absent: systolic murmur, diastolic murmur, rubs, gallop - Neurological Exam Neurological exam: Present: alert, oriented X3 - Psychiatric Psychiatric exam: Present: normal affect, normal mood - Skin Skin exam: Present: warm, dry, intact ED Course Vital Signs 11/09/18 22:40 Temperature 97.9 F Pulse Rate 98 H Respiratory 18 Rate Blood Pressure 150/91 O2 Sat by Pulse 99 Oximetry - Reevaluation(s) Reevaluation #1: 11/10/18 04:35 pt was unable to cooperate with having a CTA due to body habitus, VQ scan ordered, racing secretary notified ED Medical Decision Making - Lab Data Result diagrams: 11/10/18 01:33 11/10/18 01:33 - EKG Data EKG shows normal: sinus rhythm, axis, intervals, QRS complexes, ST-T waves Rate: normal - Radiology Data Radiology results: report reviewed PROCEDURE: XR CHEST ROUTINE 2V TECHNIQUE: PA and lateral chest radiographs were obtained. HISTORY: diff breathing. COMPARISONS: October 20, 2018. FINDINGS: Heart: Normal. Mediastinum/Vessels: Normal. Lungs/Pleural space: Slight vascular congestion. No effusion or pneumothorax. Bony thorax: No acute osseous abnormality. IMPRESSION: There is slight vascular congestion. No consolidation or effusion. This document is electronically signed by Charis Augustin DO., November 09 2018 11:31:52 PM ET Transcribed By: [facility] Dictated By: CHARIS AUGUSTIN MD Electronically Authenticated By: CHARIS AUGUSTIN MD Signed Date/Time: 11/09/18 5090 Critical care attestation.: If time is entered above; I have spent that time in minutes in the direct care of this critically ill patient, excluding procedure time. ED Disposition Is pt being admited?: No Does the pt Need Aspirin: No Time of Disposition: 04:59
== END 2018-11-10 05:20 | disposition home or self-care (01) ==
LOC: ED 22:36
DX: R07.89 Other chest pain (principal); R06.02 Shortness of breath; Z79.82 Long term (current) use of aspirin; Z88.1 Allergy status to other antibiotic agents
CPT/HCPCS: 36415; 71046; 80053; 83880; 84484; 84703; 85025; 85379; 85610; 85730; 93005; 93010; 96374; 96375; 99285; J1200; J1885; J2765

== ENCOUNTER 2019-02-04 17:40 | Emergency (ER) | payer SELFPAY ==
--- NOTE | 2019-02-04 18:09 | Event Note ---
ED Screening Note Date of service: 02/04/19 Time: 18:06 ED Screening Note: This is a 43 y.o. F. that presents to the ER with worsening cellulitis. Patient states she was discharged with antibiotics and vascular follow up. This initial assessment/diagnostic orders/clinical plan/treatment(s) is/are subject to change based on patients health status, clinical progression and re- assessment by fellow clinical providers in the ED. Further treatment and workup at subsequent clinical providers discretion. Patient/guardian urged not to elope from the ED as their condition may be serious if not clinically assessed and managed. Initial orders include: Labs
[2019-02-04 20:02] LABS: Basophils % (Auto) 0.4 % (0.0-1.8); Eosinophils # (Auto) 0.2 K/mm3 (0.0-0.4); Eosinophils % (Auto) 1.8 % (0.0-4.3); Hematocrit 34.5 % (30.3-42.9); Hemoglobin 10.5 gm/dl (10.1-14.3); Lymphocytes # (Auto) 2.5 K/mm3 (1.2-5.4); Lymphocytes % (Auto) 26.9 % (13.4-35.0); Mean Corpuscular HGB Conc 31 % (30-34); Mean Corpuscular Volume 74 fl (79-97); Monocytes # (Auto) 0.4 K/mm3 (0.0-0.8); Monocytes % (Auto) 4.7 % (0.0-7.3); Platelet Count 264 K/mm3 (140-440); Red Blood Count 4.69 M/mm3 (3.65-5.03); Red Cell Distribution Width 18.5 % (13.2-15.2)
[2019-02-04 20:26] LABS: Alanine Aminotransferase 12 units/L (7-56); Albumin 3.7 g/dL (3.9-5); BUN/Creatinine Ratio 13; Blood Urea Nitrogen 9 mg/dL (7-17); Calcium 8.8 mg/dL (8.4-10.2); Hemolysis Index 1
[2019-02-04] MEDS ORDERED: IBUPROFEN PO ONE (20:44)
--- NOTE | 2019-02-04 20:50 | Emergency Department Report ---
ED Extremity Problem HPI - General Chief complaint: Extremity Injury, Lower Stated complaint: LEG INFECTION Time Seen by Provider: 02/04/19 18:06 Source: patient Mode of arrival: Wheelchair Limitations: No Limitations - History of Present Illness Initial comments: 43-year-old female presents to the emergency room for bilateral lower leg swelling and infection. Patient states that she was here 3 months ago as an inpatient and was discharged home on Keflex and pain medication for cellulitis. Patient reports that she never filled the prescription until 2 days ago when she started having increased swelling of both legs with pain. Patient reports that she went to the hospital on [facility] this week and the provider stressed that she could be placed in herself in great danger with possible loss of extremities she does not comply with her antibiotics. Patient reports that since she has started on her Keflex 2 days ago she has noticed that the swelling in her legs have decreased but now she is having more joint pain. 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 Patient never followed up for her sleep study or cardiology appointment that was recommended to her from her last admission in October. Patient denies any fever or chills no nausea no vomiting no discharge coming from the legs. MD Complaint: extremity pain, joint swelling Onset/Timin -: week(s) Location: bilateral lower extremity History of Same: Yes -: Yes arthralgia Radiation: distal Severity scale (0 -10): 9 Quality: stabbing, aching Consistency: intermittent Improves with: elevation, rest Worsens with: weight bearing, walking Associated Symptoms: denies other symptoms - Related Data Previous Rx's Medication Instructions Recorded Last Taken Type Aspirin [Aspirin BABY CHEW TAB] 81 mg PO QDAY #30 tab.chew 10/23/18 Unknown Rx cephALEXin [Keflex] 500 mg PO Q12HR #10 cap 10/23/18 Unknown Rx oxyCODONE /ACETAMINOPHEN [Percocet 1 tab PO Q6H PRN #8 tablet 10/23/18 Unknown Rx 5/325 mg] Furosemide [Lasix] 20 mg PO QDAY 7 Days #7 tablet 11/10/18 Unknown Rx Allergies Allergy/AdvReac Type Severity Reaction Status Date / Time ciprofloxacin [From Cipro] Allergy Unknown Verified 02/04/19 18:09 ED Review of Systems ROS: Stated complaint: LEG INFECTION Other details as noted in HPI Comment: All other systems reviewed and negative ED Past Medical Hx - Past Medical History Previous Medical History?: Yes Hx Congestive Heart Failure: No Hx Diabetes: No Hx Asthma: No Additional medical history: cellulitis left leg - Surgical History Past Surgical History?: No - Social History Smoking Status: Never Smoker Substance Use Type: None - Medications Home Medications: Home Medications Medication Instructions Recorded Confirmed Last Taken Type Aspirin [Aspirin BABY CHEW TAB] 81 mg PO QDAY #30 tab.chew 10/23/18 Unknown Rx cephALEXin [Keflex] 500 mg PO Q12HR #10 cap 10/23/18 Unknown Rx oxyCODONE /ACETAMINOPHEN [Percocet 1 tab PO Q6H PRN #8 tablet 10/23/18 Unknown Rx 5/325 mg] Furosemide [Lasix] 20 mg PO QDAY 7 Days #7 tablet 11/10/18 Unknown Rx ED Physical Exam - General Limitations: No Limitations General appearance: alert, in no apparent distress - Head Head exam: Present: atraumatic, normocephalic - Eye Eye exam: Present: normal appearance - ENT ENT exam: Present: mucous membranes moist - Neck Neck exam: Present: normal inspection, full ROM - Respiratory Respiratory exam: Present: normal lung sounds bilaterally. Absent: respiratory distress - Cardiovascular Cardiovascular Exam: Present: regular rate, normal rhythm. Absent: systolic murmur, diastolic murmur, rubs, gallop - Extremities Exam Extremities exam: Present: full ROM, tenderness (BLE), pedal edema (BLE), joint swelling (BLE), other - Neurological Exam Neurological exam: Present: alert, oriented X3 - Psychiatric Psychiatric exam: Present: normal affect, normal mood - Skin Skin exam: Absent: normal color (bilateral lower extremities hyperpigmented thick dry scaly, nonerythematous no warmth, edema to this nonpitting) ED Medical Decision Making - Lab Data Result diagrams: 02/04/19 19:39 02/04/19 19:39 - Medical Decision Making 43-year-old female presents to the emergency room for bilateral lower leg swelling and infection. Patient states that she was here 3 months ago as an inpatient and was discharged home on Keflex and pain medication for cellulitis. Patient reports that she never filled the prescription until 2 days ago when she started having increased swelling of both legs with pain. Patient reports that she went to the hospital on [facility] this week and the provider stressed that she could be placed in herself in great danger with possible loss of extremities she does not comply with her antibiotics. Patient reports that since she has started on her Keflex 2 days ago she has noticed that the swelling in her legs have decreased but now she is having more joint pain. 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 Patient never followed up for her sleep study or cardiology appointment that was recommended to her from her last admission in October. Patient denies any fever or chills no nausea no vomiting no discharge coming from the legs. CBC CMP within normal limits Bilateral lower extremity edematous mildly tenderness nonerythematous no warmth Discussed the patient to continue with her Keflex and pain medication as prescribed from her previous admission. Patient was given ibuprofen. Discussed the patient the importance of losing weight. Discussed the patient to elevate follow a low-sodium diet. Patient verbalized understanding Critical care attestation.: If time is entered above; I have spent that time in minutes in the direct care of this critically ill patient, excluding procedure time. ED Disposition Clinical Impression: Cellulitis of left leg Disposition: DC-01 TO HOME OR SELFCARE Is pt being admited?: No Does the pt Need Aspirin: No Condition: Stable Instructions: Cellulitis (ED) Additional Instructions: Continue with your antibiotics and pain medication. Follow up at [facility] in the next week. Referrals: [facility] [Provider Group] - 3-5 Days
== END 2019-02-04 21:20 | disposition home or self-care (01) ==
LOC: ED 17:40
DX: L03.116 Cellulitis of left lower limb (principal); Z88.1 Allergy status to other antibiotic agents
CPT/HCPCS: 36415; 80053; 85025

== ENCOUNTER 2019-05-03 02:02 | Emergency (ER) | payer SELFPAY ==
[2019-05-03] MEDS ORDERED: CYCLOBENZAPRINE 10 MG TAB PO ONE (04:46)
[2019-05-03 05:39] LABS: Basophils # (Auto) 0.1 K/mm3 (0.0-0.1); Basophils % (Auto) 0.6 % (0.0-1.8); Eosinophils # (Auto) 0.2 K/mm3 (0.0-0.4); Eosinophils % (Auto) 1.7 % (0.0-4.3); Lymphocytes # (Auto) 2.8 K/mm3 (1.2-5.4); Lymphocytes % (Auto) 31.2 % (13.4-35.0); Mean Corpuscular HGB Conc 30 % (30-34); Mean Corpuscular Volume 73 fl (79-97); Monocytes # (Auto) 0.5 K/mm3 (0.0-0.8); Monocytes % (Auto) 5.5 % (0.0-7.3); Platelet Count 242 K/mm3 (140-440); Red Blood Count 4.76 M/mm3 (3.65-5.03); Red Cell Distribution Width 19.5 % (13.2-15.2)
[2019-05-03 05:48] LABS: Hematocrit 34.9 % (30.3-42.9); Hemoglobin 10.5 gm/dl (10.1-14.3)
[2019-05-03 05:53] LABS: Alanine Aminotransferase 10 units/L (7-56); Albumin 3.5 g/dL (3.9-5); BUN/Creatinine Ratio 13; Blood Urea Nitrogen 9 mg/dL (7-17); Calcium 8.7 mg/dL (8.4-10.2); Hemolysis Index 3
[2019-05-03] MEDS ORDERED: MORPHINE 4 MG/1 ML INJ IV ONE (06:08)
--- NOTE | 2019-05-03 06:17 | Emergency Department Report ---
<JOSE JAQUEZ A - Last Filed: 05/03/19 10:33> ED Extremity Problem HPI - General Chief complaint: Extremity Problem,Nontraumatic Stated complaint: R LEG PAIN Time Seen by Provider: 05/03/19 04:45 - Related Data Previous Rx's Medication Instructions Recorded Last Taken Type Aspirin [Aspirin BABY CHEW TAB] 81 mg PO QDAY #30 tab.chew 10/23/18 Unknown Rx cephALEXin [Keflex] 500 mg PO Q12HR #10 cap 10/23/18 Unknown Rx oxyCODONE /ACETAMINOPHEN [Percocet 1 tab PO Q6H PRN #8 tablet 10/23/18 Unknown Rx 5/325 mg] Acetaminophen/Codeine [Tylenol 1 tab PO Q6H PRN #12 tab 05/03/19 Unknown Rx /Codeine # 3 tab] Furosemide [Lasix TAB] 20 mg PO QDAY 5 Days #5 tablet 05/03/19 Unknown Rx Potassium Chloride 20 meq PO QDAY 5 Days #5 packet 05/03/19 Unknown Rx Sulfamethoxazole/Trimethoprim 1 each PO BID 5 Days #10 tablet 05/03/19 Unknown Rx [Bactrim DS TAB] cephALEXin [Keflex] 500 mg PO Q8HR 10 Days #30 cap 05/03/19 Unknown Rx Allergies Allergy/AdvReac Type Severity Reaction Status Date / Time ciprofloxacin [From Cipro] Allergy Unknown Verified 02/04/19 18:09 ED Past Medical Hx - Medications Home Medications: Home Medications Medication Instructions Recorded Confirmed Last Taken Type Aspirin [Aspirin BABY CHEW TAB] 81 mg PO QDAY #30 tab.chew 10/23/18 Unknown Rx cephALEXin [Keflex] 500 mg PO Q12HR #10 cap 10/23/18 Unknown Rx oxyCODONE /ACETAMINOPHEN [Percocet 1 tab PO Q6H PRN #8 tablet 10/23/18 Unknown Rx 5/325 mg] Acetaminophen/Codeine [Tylenol 1 tab PO Q6H PRN #12 tab 05/03/19 Unknown Rx /Codeine # 3 tab] Furosemide [Lasix TAB] 20 mg PO QDAY 5 Days #5 tablet 05/03/19 Unknown Rx Potassium Chloride 20 meq PO QDAY 5 Days #5 packet 05/03/19 Unknown Rx Sulfamethoxazole/Trimethoprim 1 each PO BID 5 Days #10 tablet 05/03/19 Unknown Rx [Bactrim DS TAB] cephALEXin [Keflex] 500 mg PO Q8HR 10 Days #30 cap 05/03/19 Unknown Rx ED Course - Reevaluation(s) Reevaluation #1: 05/03/19 10:33 Patient remained stable throughout ED course. ED Medical Decision Making - Lab Data Result diagrams: 05/03/19 05:27 05/03/19 05:27 Lab Results 05/03/19 05/03/19 05/03/19 Range/Units 05:27 05:27 05:27 WBC 9.1 (4.5-11.0) K/mm3 RBC 4.76 (3.65-5.03) M/mm3 Hgb 10.5 (10.1-14.3) gm/dl Hct 34.9 (30.3-42.9) % MCV 73 L (79-97) fl MCH 22 L (28-32) pg MCHC 30 (30-34) % RDW 19.5 H (13.2-15.2) % Plt Count 242 (140-440) K/mm3 Lymph % (Auto) 31.2 (13.4-35.0) % [place] % (Auto) 5.5 (0.0-7.3) % Eos % (Auto) 1.7 (0.0-4.3) % Baso % (Auto) 0.6 (0.0-1.8) % Lymph # 2.8 (1.2-5.4) K/mm3 [place] # 0.5 (0.0-0.8) K/mm3 Eos # 0.2 (0.0-0.4) K/mm3 Baso # 0.1 (0.0-0.1) K/mm3 Seg Neutrophils % 61.0 (40.0-70.0) % Seg Neutrophils # 5.5 (1.8-7.7) K/mm3 Sodium 139 (137-145) mmol/L Potassium 4.3 (3.6-5.0) mmol/L Chloride 97.8 L (98-107) mmol/L Carbon Dioxide 30 (22-30) mmol/L Anion Gap 16 mmol/L BUN 9 (7-17) mg/dL Creatinine 0.7 (0.7-1.2) mg/dL Estimated GFR > 60 ml/min BUN/Creatinine Ratio 13 % Glucose 123 H (65-100) mg/dL Lactic Acid 1.50 (0.7-2.0) mmol/L Calcium 8.7 (8.4-10.2) mg/dL Total Bilirubin 0.30 (0.1-1.2) mg/dL AST 11 (5-40) units/L ALT 10 (7-56) units/L Alkaline Phosphatase 106 (35-129) units/L NT-Pro-B Natriuret Pep 18.98 (0-450) pg/mL Total Protein 7.3 (6.3-8.2) g/dL Albumin 3.5 L (3.9-5) g/dL Albumin/Globulin Ratio 0.9 % - Radiology Data Radiology results: report reviewed Doppler ultrasound bilateral lower extremity dictated by radiologist and reviewed by myself. No acute findings. Findings [facility] [address] [place] [address] Vascular Lab Report Signed Patient: MIGUE LEWIS MR#: [id number] : 1975 Acct:[id number] Age/Sex: 44 / F ADM Date: 05/03/19 Loc: ED Attending Dr: Ordering Physician: JOE SALINAS Date of Service: 05/03/19 Procedure(s): VL venous duplex LE BILAT Accession Number(s): [id number] cc: JOE SALINAS DUPLEX DOPPLER LOWER EXTREMITY VEINS, BILATERAL INDICATION / CLINICAL INFORMATION: bilateral LE edema, right greater than left. TECHNIQUE: Duplex doppler imaging was performed through the veins of both lower extremities using venous compression and other maneuvers. COMPARISON: None available. FINDINGS: Right Common Femoral vein: Negative. Right Femoral vein: Negative. Right Popliteal vein: Negative. Right Calf veins: Negative. Left Common Femoral vein: Negative. Left Femoral vein: Negative. Left Popliteal vein: Negative. Left Calf veins: Negative. Additional findings: None. IMPRESSION: 1. No sonographic evidence for DVT in either lower extremity. Signer Name: Pan Bennett MD Signed: 05/03/2019 9:20 AM Workstation Name: [id number] Transcribed By: TL Dictated By: Pan Bennett MD Electronically Authenticated By: aPn Bennett MD Signed Date/Time: 05/03/19919 DD/ 8 TD/TT: - Medical Decision Making Patient here for swelling and an pain to right leg and found to have bilateral lower extremity edema with cellulitis to right lower extremity. She has Doppler ultrasound of bilateral lower extremity which shows no DVT. Patient was seen at [place] 3 months ago and she said the prescribe her antibiotic for cellulitis of her right leg but she could not afford to buy it. She said it was Keflex. BNP was normal. Patient with palpable pulses at DP and PT. Lab work reviewed and stable. I discussed diagnosis and treatment plan a patient and she was understanding. Patient stable and in no acute distress discharged from ED with prescription for Lasix and potassium, Bactrim and Keflex and Tylenol 3. ED Disposition Clinical Impression: Swelling of both lower extremities, Cellulitis of right lower extremity Disposition: TO HOME OR SELFCARE Is pt being admited?: No Does the pt Need Aspirin: No Condition: Stable Instructions: Cellulitis (ED), Leg Edema (ED) Additional Instructions: Please follow up with the primary care physician and also vascular as i nstructed. Take medication as prescribed. He states Lasix and potassium together. Take Bactrim and Keflex and this will help with cellulitis of your leg If your condition worsens, return to the emergency room If you condition worsens, please go to the closest hospital Please not drive or operate heavy machinery or take can Tylenol 3 as this medication causes drowsiness Prescriptions: Sulfamethoxazole/Trimethoprim [Bactrim DS TAB] 1 each PO BID 5 Days #10 tablet cephALEXin [Keflex] 500 mg PO Q8HR 10 Days #30 cap Furosemide [Lasix TAB] 20 mg PO QDAY 5 Days #5 tablet Potassium Chloride 20 meq PO QDAY 5 Days #5 packet Acetaminophen/Codeine [Tylenol /Codeine # 3 tab] 1 tab PO Q6H PRN #12 tab PRN Reason: moderate to severe pain Referrals: [facility] [Outside] - 05/05/19 [facility] [Outside] - 05/05/19 RANJITH CORDOBA MD [Staff Physician] - 05/05/19 PRIMARY CARE, [Primary Care Provider] - 05/05/19 Forms: Accompanied Note, Work/School Release Form(ED) <ETHAN MANN - Last Filed: 05/07/19 10:26> ED Extremity Problem HPI - General Source: patient Mode of arrival: Ambulatory Limitations: No Limitations - History of Present Illness Initial comments: Patient is a 44-year-old female presents emergency room with complaints of right lower extremity pain and swelling for the last 2 days. She states that her leg is erythematous and warm to touch. pt states she has chronic lower extremity swelling bilaterally but it has become worse in the right leg. She states she was diagnosed with cellulitis at another hospital but did not get her medications filled. She denies any fever, chills, vomiting, any other symptoms. ED Review of Systems ROS: Stated complaint: R LEG PAIN Other details as noted in HPI Comment: All other systems reviewed and negative ED Past Medical Hx - Past Medical History Hx Congestive Heart Failure: No Hx Diabetes: No Hx Asthma: No Additional medical history: cellulitis left leg - Social History Smoking Status: Never Smoker Substance Use Type: None ED Physical Exam - General Limitations: No Limitations General appearance: alert, in no apparent distress - Head Head exam: Present: atraumatic, normocephalic - Eye Eye exam: Present: normal appearance - ENT ENT exam: Present: mucous membranes moist - Respiratory Respiratory exam: Present: normal lung sounds bilaterally. Absent: respiratory distress, wheezes, rales, rhonchi, stridor, chest wall tenderness, accessory muscle use, decreased breath sounds, prolonged expiratory - Cardiovascular Cardiovascular Exam: Present: regular rate, normal rhythm, normal heart sounds. Absent: systolic murmur, diastolic murmur, rubs, gallop - Extremities Exam Extremities exam: Present: other (significant edema present to the BLE, slightly increased on the right lower extremity, pt has erythema and increased warmth present to the right anterior hernandez, no drainage, sensation inatct, unable to palpate pulses secondary to body habitus) - Neurological Exam Neurological exam: Present: alert, oriented X3 - Psychiatric Psychiatric exam: Present: normal affect, normal mood - Skin Skin exam: Present: warm, dry, intact ED Course Vital Signs 05/03/19 05/03/19 05/03/19 02:13 06:42 09:09 Temperature 98.2 F 98.2 F 98.6 F Pulse Rate 99 H 94 H 89 Respiratory 18 17 18 Rate Blood Pressure 152/62 128/72 Blood Pressure 142/84 [Right] O2 Sat by Pulse 96 96 89 Oximetry ED Medical Decision Making - Lab Data Result diagrams: 05/03/19 05:27 05/03/19 05:27 Critical care attestation.: If time is entered above; I have spent that time in minutes in the direct care of this critically ill patient, excluding procedure time. ED Disposition Is pt being admited?: No Does the pt Need Aspirin: No
[2019-05-03 09:10] VITALS: BP 128/72
--- NOTE | 2019-05-03 09:24 | Vascular Lab Report ---
DUPLEX DOPPLER LOWER EXTREMITY VEINS, BILATERAL INDICATION / CLINICAL INFORMATION: bilateral LE edema, right greater than left. TECHNIQUE: Duplex doppler imaging was performed through the veins of both lower extremities using venous vamshi elvia and other maneuvers. COMPARISON: None available. FINDINGS: Right Common Femoral vein: Negative. Right Femoral vein: Negative. Right Popliteal vein: Negative. Right Calf veins: Negative. Left Common Femoral vein: Negative. Left Femoral vein: Negative. Left Popliteal vein: Negative. Left Calf veins: Negative. Additional findings: None. IMPRESSION: 1. No sonographic evidence for DVT in either lower extremity. Signer Name: Pan Bennett MD Signed: 05/03/2019 9:20 AM Workstation Name: [id number]
== END 2019-05-03 11:52 | disposition home or self-care (01) ==
LOC: ED 02:02
DX: L03.115 Cellulitis of right lower limb (principal); Z79.899 Other long term (current) drug therapy; Z88.8 Allergy status to other drugs, medicaments and biological substances
CPT/HCPCS: 36415; 80053; 82140; 83880; 85025; 93970; 96365; 96375; 99284; J2270

== ENCOUNTER 2019-05-13 02:11 | Emergency (ER) | payer SELFPAY ==
[2019-05-13] MEDS ORDERED: KETOROLAC 60 MG/2 ML INJ IM ONE (04:29)
--- NOTE | 2019-05-13 04:29 | Emergency Department Report ---
ED General Adult HPI - General Chief complaint: Extremity Injury, Lower Stated complaint: LEG PAIN Time Seen by Provider: 05/13/19 04:05 Source: patient Mode of arrival: Ambulatory Limitations: No Limitations - History of Present Illness Initial comments: 44-year-old female presents emergency room with complaints of bilateral lower extremity pain and cellulitis. Patient states that the pain is getting better but she wanted to have her legs checked out. Patient states the pain is a 6 out of 10. Patient states the pain is better with rest and worse with movement. Patient states she was diagnosed cellulitis and placed on Keflex and Bactrim. Patient states she has not followed up with a primary care or any physician as an outpatient. Patient states she has pain medication but she does not want to take it. Location: lower extremity Severity scale (0 -10): 6 Quality: aching Consistency: constant Improves with: rest Worsens with: movement Associated Symptoms: denies: confusion, chest pain, cough, diaphoresis, fever/chills, headaches, loss of appetite, malaise, nausea/vomiting, rash, seizure, shortness of breath, syncope, weakness - Related Data Previous Rx's Medication Instructions Recorded Last Taken Type Aspirin [Aspirin BABY CHEW TAB] 81 mg PO QDAY #30 tab.chew 10/23/18 Unknown Rx cephALEXin [Keflex] 500 mg PO Q12HR #10 cap 10/23/18 Unknown Rx oxyCODONE /ACETAMINOPHEN [Percocet 1 tab PO Q6H PRN #8 tablet 10/23/18 Unknown Rx 5/325 mg] Acetaminophen/Codeine [Tylenol 1 tab PO Q6H PRN #12 tab 05/03/19 Unknown Rx /Codeine # 3 tab] Furosemide [Lasix TAB] 20 mg PO QDAY 5 Days #5 tablet 05/03/19 Unknown Rx Potassium Chloride 20 meq PO QDAY 5 Days #5 packet 05/03/19 Unknown Rx Sulfamethoxazole/Trimethoprim 1 each PO BID 5 Days #10 tablet 05/03/19 Unknown Rx [Bactrim DS TAB] cephALEXin [Keflex] 500 mg PO Q8HR 10 Days #30 cap 05/03/19 Unknown Rx Naproxen [Naprosyn] 500 mg PO Q12HR PRN #20 tablet 05/13/19 Unknown Rx Allergies Allergy/AdvReac Type Severity Reaction Status Date / Time ciprofloxacin [From Cipro] Allergy Unknown Verified 02/04/19 18:09 ED Review of Systems ROS: Stated complaint: LEG PAIN Other details as noted in HPI Constitutional: denies: chills, fever Eyes: denies: eye pain, eye discharge, vision change ENT: denies: ear pain, throat pain Respiratory: denies: cough, shortness of breath, wheezing Cardiovascular: denies: chest pain, palpitations Endocrine: no symptoms reported Gastrointestinal: denies: abdominal pain, nausea, diarrhea Genitourinary: denies: urgency, dysuria, discharge Musculoskeletal: denies: back pain, joint swelling, arthralgia Skin: denies: rash, lesions Neurological: denies: headache, weakness, paresthesias Psychiatric: denies: anxiety, depression Hematological/Lymphatic: denies: easy bleeding, easy bruising ED Past Medical Hx - Past Medical History Previous Medical History?: Yes Hx Congestive Heart Failure: No Hx Diabetes: No Hx Asthma: No Additional medical history: cellulitis left leg - Surgical History Past Surgical History?: No Additional Surgical History: LAP of cyst on ovary - Family History Family history: no significant - Social History Smoking Status: Never Smoker Substance Use Type: None - Medications Home Medications: Home Medications Medication Instructions Recorded Confirmed Last Taken Type Aspirin [Aspirin BABY CHEW TAB] 81 mg PO QDAY #30 tab.chew 10/23/18 Unknown Rx cephALEXin [Keflex] 500 mg PO Q12HR #10 cap 10/23/18 Unknown Rx oxyCODONE /ACETAMINOPHEN [Percocet 1 tab PO Q6H PRN #8 tablet 10/23/18 Unknown Rx 5/325 mg] Acetaminophen/Codeine [Tylenol 1 tab PO Q6H PRN #12 tab 05/03/19 Unknown Rx /Codeine # 3 tab] Furosemide [Lasix TAB] 20 mg PO QDAY 5 Days #5 tablet 05/03/19 Unknown Rx Potassium Chloride 20 meq PO QDAY 5 Days #5 packet 05/03/19 Unknown Rx Sulfamethoxazole/Trimethoprim 1 each PO BID 5 Days #10 tablet 05/03/19 Unknown Rx [Bactrim DS TAB] cephALEXin [Keflex] 500 mg PO Q8HR 10 Days #30 cap 05/03/19 Unknown Rx Naproxen [Naprosyn] 500 mg PO Q12HR PRN #20 tablet 05/13/19 Unknown Rx ED Physical Exam - General Limitations: No Limitations General appearance: alert, in no apparent distress - Head Head exam: Present: atraumatic, normocephalic - Eye Eye exam: Present: normal appearance - ENT ENT exam: Present: mucous membranes moist - Neck Neck exam: Present: normal inspection - Respiratory Respiratory exam: Present: normal lung sounds bilaterally. Absent: respiratory distress - Cardiovascular Cardiovascular Exam: Present: regular rate, normal rhythm. Absent: systolic murmur, diastolic murmur, rubs, gallop - GI/Abdominal GI/Abdominal exam: Present: soft, normal bowel sounds - Extremities Exam Extremities exam: Present: full ROM, pedal edema. Absent: tenderness, calf tenderness - Back Exam Back exam: Present: normal inspection - Neurological Exam Neurological exam: Present: alert, oriented X3 - Psychiatric Psychiatric exam: Present: normal affect, normal mood - Skin Skin exam: Present: warm, dry, intact, normal color. Absent: rash ED Course Vital Signs 05/13/19 05/13/19 05/13/19 02:21 03:23 03:24 Temperature 97.6 F 97.6 F Pulse Rate 101 H 101 H 102 H Respiratory 20 18 18 Rate Blood Pressure 149/79 Blood Pressure 136/85 [Right] O2 Sat by Pulse 99 98 100 Oximetry 05/13/19 05/13/19 03:31 04:00 Temperature Pulse Rate 110 H 102 H Respiratory 18 24 Rate Blood Pressure 136/85 118/53 Blood Pressure [Right] O2 Sat by Pulse 98 94 Oximetry - Reevaluation(s) Reevaluation #1: 05/13/19 04:28 I discussed clinical findings the patient. Discussed plan of care patient. Patient agrees with plan of care. Patient will be discharged home. Patient requested a social work consult for her finances and some assistance with her finances. I gave patient discharge instructions. Patient voiced understanding of discharge instructions ED Medical Decision Making - Medical Decision Making Patient is a 44-year-old female that presents emergency room with complaints of lower extremity pain. Patient recently diagnosed with cellulitis and placed on Bactrim and Keflex. Patient's pain is improved. Patient presents emergency room just for a site recheck. Patient given Naprosyn for the inflammation. Patient given discharge instructions. Prior to discharge patient requested a social organization professor consult. Patient was also given a dose of Toradol. Patient discharged home. - Differential Diagnosis cellulitis, inflammation, leg pain. Critical care attestation.: If time is entered above; I have spent that time in minutes in the direct care of this critically ill patient, excluding procedure time. ED Disposition Clinical Impression: Cellulitis of right lower extremity, Swelling of both lower extremities Cellulitis Qualifiers: Site of cellulitis: extremity Site of cellulitis of extremity: lower extremity Laterality: left Qualified Code(s): L03.116 - Cellulitis of left lower limb Disposition: TO HOME OR SELFCARE Is pt being admited?: No Does the pt Need Aspirin: No Condition: Stable Instructions: Naproxen (By mouth), Cellulitis (ED) Additional Instructions: Patient to follow up with primary care in 2-3 days. Patient to return to ER if condition changes, worsens or new symptoms arise. Patient to take meds as directed. Patient to take Tylenol when necessary for pain. Patient to increase water. Patient to apply compression stockings. Patient to elevate limbs. Patient to increase water. Patient to continue antibiotics. Prescriptions: Naproxen [Naprosyn] 500 mg PO Q12HR PRN #20 tablet PRN Reason: pain Referrals: ADIEL GILBERT MD [Staff Physician] - 2-3 Days Time of Disposition: 04:31
[2019-05-13 04:30] VITALS: BP 118/53
== END 2019-05-13 05:39 | disposition home or self-care (01) ==
LOC: ED 02:11
DX: L03.116 Cellulitis of left lower limb (principal); L03.115 Cellulitis of right lower limb
CPT/HCPCS: 96372; 99282; J1885

== ENCOUNTER 2019-05-16 16:00 | Emergency (ER) | payer SELFPAY ==
[2019-05-16 17:29] VITALS: BP 152/82
--- NOTE | 2019-05-16 17:29 | Event Note ---
ED Screening Note Date of service: 05/16/19 Time: 17:27 ED Screening Note: Pt complains of SOB, N/V, hx of CHF This initial assessment/diagnostic orders/clinical plan/treatment(s) is/are subject to change based on patients health status, clinical progression and re- assessment by fellow clinical providers in the ED. Further treatment and workup at subsequent clinical providers discretion. Patient/guardian urged not to elope from the ED as their condition may be serious if not clinically assessed and managed. Initial orders include:
--- NOTE | 2019-05-16 18:49 | Vascular Lab Report ---
DUPLEX DOPPLER LOWER EXTREMITY VEINS, RIGHT INDICATION: leg swelling and pain. TECHNIQUE: Duplex doppler imaging was performed through the veins of the right lower extremity using venous comp ression and other maneuvers. COMPARISON: None available. FINDINGS: Common femoral vein: Negative. Superficial femoral vein: Negative. Popliteal vein: Negative. Calf veins: Negative. Peroneal veins could not be visualized. Additional findings: There is a prominent right groin lymph node which measures 1.7 cm in the short a xis. IMPRESSION: 1. No sonographic evidence for DVT in the right lower extremity. 2. There is a prominent right groin lymph node which is not specific. Signer Name: Markos Yuen MD Signed: 05/16/2019 6:45 PM Workstation Name: [id number]
--- NOTE | 2019-05-16 20:51 | XRay Report ---
CHEST PA AND LATERAL VIEWS INDICATION: cough, shortness. COMPARISON: 06/11/2018 FINDINGS: Support devices: None Heart: Normal and unchanged Lungs/Pleura: At least some of the increased opacity in the lungs is thought to be due to overlying s oft tissue density. I see no convincing evidence of acute disease. IMPRESSION: 1. No definite acute disease. Signer Name: Rene Rojas MD Signed: 05/16/2019 8:46 PM Workstation Name: [id number]
--- NOTE | 2019-05-17 04:42 | Emergency Department Report ---
ED General Adult HPI - General Chief complaint: Abdominal Pain Stated complaint: N/V Time Seen by Provider: 05/16/19 17:27 Source: patient Mode of arrival: Wheelchair Limitations: Physical Limitation - History of Present Illness Initial comments: Patient reports she came to the ER because [facility] told her she had pnuemonia and discharged her with azithromycin antibiotic. Patient reports she is here because she feels she would heal more quickly if she could just stay in the hospital. - Related Data Previous Rx's Medication Instructions Recorded Last Taken Type Aspirin [Aspirin BABY CHEW TAB] 81 mg PO QDAY #30 tab.chew 10/23/18 Unknown Rx cephALEXin [Keflex] 500 mg PO Q12HR #10 cap 10/23/18 Unknown Rx oxyCODONE /ACETAMINOPHEN [Percocet 1 tab PO Q6H PRN #8 tablet 10/23/18 Unknown Rx 5/325 mg] Acetaminophen/Codeine [Tylenol 1 tab PO Q6H PRN #12 tab 05/03/19 Unknown Rx /Codeine # 3 tab] Furosemide [Lasix TAB] 20 mg PO QDAY 5 Days #5 tablet 05/03/19 Unknown Rx Potassium Chloride 20 meq PO QDAY 5 Days #5 packet 05/03/19 Unknown Rx Sulfamethoxazole/Trimethoprim 1 each PO BID 5 Days #10 tablet 05/03/19 Unknown Rx [Bactrim DS TAB] cephALEXin [Keflex] 500 mg PO Q8HR 10 Days #30 cap 05/03/19 Unknown Rx Naproxen [Naprosyn] 500 mg PO Q12HR PRN #20 tablet 05/13/19 Unknown Rx Allergies Allergy/AdvReac Type Severity Reaction Status Date / Time ciprofloxacin [From Cipro] Allergy Unknown Verified 02/04/19 18:09 ED Review of Systems ROS: Stated complaint: N/V Other details as noted in HPI Other: GENERAL: No weight change, fatigue, fever, chills, or night sweats SKIN: No changes in skin or hair, no itching, no rashes, no jaundice HEAD: No trauma EYES: No blurriness, tearing, itching, acute visual loss, conjunctival discoloration, or scleral icterus EARS: No hearing loss, tinnitus, vertigo, or earache NOSE: No rhinorrhea, stuffiness, sneezing, itching, or epistaxis MOUTH: No bleeding gums, hoarseness, sore throat, or swelling CARDIAC: No new murmur, chest pain, palpitations, dyspnea on exertion, orthopnea, PND, or edema RESPIRATORY: No shortness of breath, wheeze, cough, sputum production, hemoptysis GI: No abdominal pain, nausea, vomiting, dysphagia, diarrhea, constipation, hematemesis, melena, hematochezia URINARY: No frequency, urgency, polyuria, dysuria, hematuria, or incontinence MUSCULOSKELETAL: Right leg pain. No muscle weakness, joint stiffness, decrease in range of motion, redness, swelling NEUROLOGIC: No headache, syncope, loss of sensation, numbness, tingling, tremors, weakness, paralysis, seizures HEMATOLOGIC: No anemia, easy bruising, bleeding, petechiae, or purpura ENDOCRINE: No hot or cold intolerance, sweating, polyuria, polydipsia or, polyphagia no thyroid problems PSYCHIATRIC: No change in mood, no anxiety, no depression ED Past Medical Hx - Past Medical History Previous Medical History?: Yes Hx Congestive Heart Failure: No Hx Diabetes: No Hx Asthma: No Additional medical history: cellulitis left leg - Surgical History Past Surgical History?: Yes Additional Surgical History: LAP of cyst on ovary - Social History Smoking Status: Never Smoker Substance Use Type: None - Medications Home Medications: Home Medications Medication Instructions Recorded Confirmed Last Taken Type Aspirin [Aspirin BABY CHEW TAB] 81 mg PO QDAY #30 tab.chew 10/23/18 Unknown Rx cephALEXin [Keflex] 500 mg PO Q12HR #10 cap 10/23/18 Unknown Rx oxyCODONE /ACETAMINOPHEN [Percocet 1 tab PO Q6H PRN #8 tablet 10/23/18 Unknown Rx 5/325 mg] Acetaminophen/Codeine [Tylenol 1 tab PO Q6H PRN #12 tab 05/03/19 Unknown Rx /Codeine # 3 tab] Furosemide [Lasix TAB] 20 mg PO QDAY 5 Days #5 tablet 05/03/19 Unknown Rx Potassium Chloride 20 meq PO QDAY 5 Days #5 packet 05/03/19 Unknown Rx Sulfamethoxazole/Trimethoprim 1 each PO BID 5 Days #10 tablet 05/03/19 Unknown Rx [Bactrim DS TAB] cephALEXin [Keflex] 500 mg PO Q8HR 10 Days #30 cap 05/03/19 Unknown Rx Naproxen [Naprosyn] 500 mg PO Q12HR PRN #20 tablet 05/13/19 Unknown Rx ED Physical Exam - General Limitations: Physical Limitation - Other Other exam information: GENERAL: Patient in no acute distress HEAD: Normocephalic, atraumatic EYES: PERRLA, EOM intact, no scleral icterus, no conjunctival hemorrhage, visual chu and acuity wnl NOSE: No tenderness, discharge, sinus tenderness MOUTH: No erythema, bleeding, exudate HEART: Regular rate and rhythm, no murmur, S1-S2 are auscultated, no edema, pulses are symmetric LUNGS: No respiratory distress. Bilateral breath sounds, No tachypnea, No r etractions, No wheezing, rales, rhonchi ABDOMEN: Normal bowel sounds, abdomen soft, no tenderness, no rebound, no guarding, no distention, no masses, no CVA tenderness MUSCULOSKELETAL: Normal joint range of motion, no redness, no swelling, no tenderness NEUROLOGIC: GCS 15, Alert and Oriented x3, Cranial nerves intact, normal sensation, normal strength, no cerebellar deficit, NIHSS 0 PSYCHIATRIC: No homicidal or suicidal ideation, no hallucinations SKIN: Skin is warm and dry ED Course Vital Signs 05/16/19 17:27 Temperature 97.9 F Pulse Rate 94 H Respiratory 22 Rate Blood Pressure 152/82 O2 Sat by Pulse 97 Oximetry ED Medical Decision Making - Radiology Data Radiology results: report reviewed - Medical Decision Making Patient comfortable. Reports symptom improvement. Updated with results. Plan discharge with outpatient follow up. Return if any worsening. Critical care attestation.: If time is entered above; I have spent that time in minutes in the direct care of this critically ill patient, excluding procedure time. ED Disposition Clinical Impression: Encounter for medical screening examination Disposition: TO HOME OR SELFCARE Is pt being admited?: No Condition: Stable Instructions: Normal Exam (ED) Referrals: PRIMARY MD TYE [Primary Care Provider] - 2-3 Days RANJITH LOPEZ MD [Staff Physician] - 2-3 Days [facility] [Outside] - 2-3 Days Time of Disposition: 04:39
== END 2019-05-17 07:10 | disposition home or self-care (01) ==
LOC: ED 16:00
DX: Z00.00 Encounter for general adult medical examination without abnormal findings (principal); Z79.899 Other long term (current) drug therapy; Z88.1 Allergy status to other antibiotic agents
CPT/HCPCS: 71046

== ENCOUNTER 2019-12-27 19:57 | Emergency (ER) | payer SELFPAY ==
--- NOTE | 2019-12-27 20:46 | Event Note ---
ED Screening Note ED Screening Note: hx pe sob not taking her coumadin This initial assessment/diagnostic orders/clinical plan/treatment(s) is/are subject to change based on patients health status, clinical progression and re- assessment by fellow clinical providers in the ED. Further treatment and workup at subsequent clinical providers discretion. Patient/guardian urged not to elope from the ED as their condition may be serious if not clinically assessed and managed. Initial orders include: labs 12 lead xr chest
[2019-12-27 21:12] LABS: Basophils % (Auto) 0.3 % (0.0-1.8); Eosinophils # (Auto) 0.2 K/mm3 (0.0-0.4); Eosinophils % (Auto) 2.3 % (0.0-4.3); Hematocrit 32.5 % (30.3-42.9); Lymphocytes % (Auto) 31.1 % (13.4-35.0); Mean Corpuscular HGB Conc 31 % (30-34); Monocytes # (Auto) 0.5 K/mm3 (0.0-0.8); Monocytes % (Auto) 5.2 % (0.0-7.3); Platelet Count 235 K/mm3 (140-440); Red Blood Count 4.67 M/mm3 (3.65-5.03)
[2019-12-27 21:13] LABS: Mean Corpuscular Volume 70 fl (79-97); Red Cell Distribution Width 20.6 % (13.2-15.2)
[2019-12-27 21:22] LABS: INR 1.23 (0.87-1.13)
[2019-12-27 21:30] LABS: Alanine Aminotransferase 10 units/L (7-56); Albumin 3.3 g/dL (3.9-5); BUN/Creatinine Ratio 18; Blood Urea Nitrogen 11 mg/dL (7-17); Calcium 8.7 mg/dL (8.4-10.2); Hemolysis Index 3
--- NOTE | 2019-12-27 22:21 | Emergency Department Report ---
ED Dizziness HPI - General Chief Complaint: Dizziness Stated Complaint: WEAKNESS Time Seen by Provider: 12/27/19 20:45 Source: patient Mode of arrival: Stretcher Limitations: No Limitations - History of Present Illness Initial Comments: 44-year-old female presents to ED with generalized weakness, dizziness x3 days. She states she felt as though she was going to pass out earlier. Patient denies any fever, nausea, vomiting, diarrhea. Patient reports history of PE. States she has been off of her Coumadin for 4 days, but states it was restarted on . Patient reports some left chest pain, but states it is chronic and she has been having it "for years." Patient also states "I think my cellulitis is coming back." States the black spot on her left ankle has been giving her problems. Complaint: lightheadedness -: days(s) (3) Description: lightheadedness Severity: moderate Associated Symptoms: chest pain. denies: fever/chills, shortness of breath - Related Data Previous Rx's Medication Instructions Recorded Last Taken Type Aspirin [Aspirin BABY CHEW TAB] 81 mg PO QDAY #30 tab.chew 10/23/18 Unknown Rx Furosemide [Lasix TAB] 20 mg PO QDAY 5 Days #5 tablet 05/03/19 Unknown Rx Sulfamethoxazole/Trimethoprim 1 each PO BID 5 Days #10 tablet 05/03/19 Unknown Rx [Bactrim DS TAB] Allergies Allergy/AdvReac Type Severity Reaction Status Date / Time ciprofloxacin [From Cipro] Allergy Unknown Verified 02/04/19 18:09 ED Review of Systems ROS: Stated complaint: WEAKNESS Other details as noted in HPI Comment: All other systems reviewed and negative Constitutional: denies: fever Respiratory: denies: cough, shortness of breath Cardiovascular: chest pain Gastrointestinal: denies: vomiting, diarrhea ED Past Medical Hx - Past Medical History Previous Medical History?: Yes Hx Hypertension: Yes Hx Congestive Heart Failure: No Hx Diabetes: No Hx Asthma: No Additional medical history: cellulitis left leg, Multiple Blood clots in lungs. Morbid Obesity - Surgical History Past Surgical History?: Yes Additional Surgical History: LAP of cyst on ovary - Social History Smoking Status: Never Smoker Substance Use Type: None - Medications Home Medications: Home Medications Medication Instructions Recorded Confirmed Last Taken Type Aspirin [Aspirin BABY CHEW TAB] 81 mg PO QDAY #30 tab.chew 10/23/18 Unknown Rx Furosemide [Lasix TAB] 20 mg PO QDAY 5 Days #5 tablet 05/03/19 Unknown Rx Sulfamethoxazole/Trimethoprim 1 each PO BID 5 Days #10 tablet 05/03/19 Unknown Rx [Bactrim DS TAB] ED Physical Exam - General Limitations: No Limitations General appearance: alert, in no apparent distress, obese - Head Head exam: Present: atraumatic, normocephalic - Eye Eye exam: Present: normal appearance, EOMI - ENT ENT exam: Present: mucous membranes moist - Neck Neck exam: Present: normal inspection - Respiratory Respiratory exam: Present: normal lung sounds bilaterally. Absent: respiratory distress - Cardiovascular Cardiovascular Exam: Present: regular rate, normal rhythm - GI/Abdominal GI/Abdominal exam: Absent: distended - Extremities Exam Extremities exam: Present: other (no evidence of erythema; appearance of some chronic lymphedema) - Neurological Exam Neurological exam: Present: alert, oriented X3 - Psychiatric Psychiatric exam: Present: normal affect, normal mood ED Course Vital Signs 12/27/19 20:44 Temperature 98 F Pulse Rate 88 Respiratory 20 Rate Blood Pressure 148/101 [Left] O2 Sat by Pulse 99 Oximetry ED Medical Decision Making - Lab Data Result diagrams: 12/27/19 20:53 12/27/19 20:53 - EKG Data -: EKG Interpreted by Me EKG shows normal: sinus rhythm, axis, intervals, QRS complexes, ST-T waves Rate: normal - EKG Data Interpretation: no acute changes - Radiology Data Radiology results: report reviewed, image reviewed - Medical Decision Making - pt comfortable, sitting up in stretcher, using her laptop Critical care attestation.: If time is entered above; I have spent that time in minutes in the direct care of this critically ill patient, excluding procedure time. ED Disposition Clinical Impression: Generalized weakness Disposition: DC-01 TO HOME OR SELFCARE Is pt being admited?: No Condition: Stable Instructions: Weakness (ED) Referrals: [facility] [Outside] - 3-5 Days [facility] [Outside] - 3-5 Days [facility] [Provider Group] - 3-5 Days KIMI ESPINOZA MD [Staff Physician] - 3-5 Days [facility] [Outside] - 3-5 Days Time of Disposition: 23:28
--- NOTE | 2019-12-27 22:35 | XRay Report ---
CHEST 2 VIEWS INDICATION / CLINICAL INFORMATION: sob. COMPARISON: 05/16/2019 FINDINGS: SUPPORT DEVICES: None. HEART / MEDIASTINUM: No significant abnormality. LUNGS / PLEURA: There is venous congestion. There is increase in the pulmonary markings bilaterally t his could represent developing edema. Heart is mildly enlarged. .No pneumothorax. ADDITIONAL FINDINGS: No significant additional findings. IMPRESSION: There is mild venous congestion. There may be some mild interstitial edema as well. Signer Name: Markos Yuen MD Signed: 12/27/2019 10:30 PM Workstation Name: [id number]
[2019-12-28 02:07] VITALS: BP 101/40
== END 2019-12-28 00:26 | disposition home or self-care (01) ==
LOC: ED 19:57
DX: R07.89 Other chest pain (principal); R53.1 Weakness; R42 Dizziness and giddiness; I10 Essential (primary) hypertension; E66.01 Morbid (severe) obesity due to excess calories; Z68.43 Body mass index [BMI] 50.0-59.9, adult
CPT/HCPCS: 36415; 71046; 80053; 83880; 84484; 85025; 85610; 93005

== ENCOUNTER 2020-01-12 23:32 | Emergency (ER) | payer SELFPAY ==
[2020-01-13 00:55] LABS: Basophils % (Auto) 0.2 % (0.0-1.8); Eosinophils # (Auto) 0.2 K/mm3 (0.0-0.4); Eosinophils % (Auto) 2.1 % (0.0-4.3); Lymphocytes # (Auto) 4.2 K/mm3 (1.2-5.4); Lymphocytes % (Auto) 38.1 % (13.4-35.0); Mean Corpuscular HGB Conc 30 % (30-34); Mean Corpuscular Volume 72 fl (79-97); Monocytes # (Auto) 0.6 K/mm3 (0.0-0.8); Monocytes % (Auto) 5.2 % (0.0-7.3); Platelet Count 283 K/mm3 (140-440); Red Blood Count 4.62 M/mm3 (3.65-5.03); Red Cell Distribution Width 19.9 % (13.2-15.2)
[2020-01-13 01:01] LABS: Hematocrit 33.1 % (30.3-42.9); Hemoglobin 9.9 gm/dl (10.1-14.3)
[2020-01-13 01:10] LABS: Alanine Aminotransferase 10 units/L (7-56); Albumin 3.8 g/dL (3.9-5); BUN/Creatinine Ratio 13; Blood Urea Nitrogen 10 mg/dL (7-17); Hemolysis Index 3
[2020-01-13] MEDS ORDERED: SODIUM CHLORIDE 0.9% 1000 ML 1,000 ML IV ONE (01:41)
--- NOTE | 2020-01-13 01:44 | Emergency Department Report ---
ED Dizziness HPI - General Chief Complaint: Dizziness Stated Complaint: FEELING FAINT/DIZZINESS Time Seen by Provider: 01/13/20 01:33 Source: patient Mode of arrival: Ambulatory Limitations: No Limitations - History of Present Illness Initial Comments: Patient is a 44-year-old female that presents emergency room with complaints of dizziness and lightheadedness. Patient states that she has been having the symptoms for 3 weeks. Patient states that the symptoms are worse when she is working or in the heat. Patient states that her symptoms are better with rest and lying down. Patient states she just cannot drink enough water and she feels dehydrated. Patient states that her symptoms started after starting Lasix and Coumadin. Patient states she just recently moved here and is waiting to get established with her primary care so that they can monitor her chemistry and Coumadin levels. Patient states that she was seen recently and [facility] for the same symptoms and was medically cleared and discharged home. Patient states that they gave her fluids and [facility] and she felt much better. MD Complaint: dizziness, lightheadedness -: Sudden Timing: sudden onset Description: lightheadedness, off-balance, near-syncope History of Same: Yes History of Trauma: No Severity: severe Improves With: remaining still, rehydration, rest Worsens With: exertion, other (working and heat or hot temp) Associated Symptoms: denies other symptoms. denies: ataxia, chest pain, confusion, cough, diaphoresis, fever/chills, loss of appetite, malaise, rash, seizure, shortness of breath, syncope, weakness - Related Data Previous Rx's Medication Instructions Recorded Last Taken Type Aspirin [Aspirin BABY CHEW TAB] 81 mg PO QDAY #30 tab.chew 10/23/18 Unknown Rx Furosemide [Lasix TAB] 20 mg PO QDAY 5 Days #5 tablet 05/03/19 Unknown Rx Sulfamethoxazole/Trimethoprim 1 each PO BID 5 Days #10 tablet 05/03/19 Unknown Rx [Bactrim DS TAB] Iron Fum,Ps/Folic/Bcomp,C No.9 1 each PO DAILY 30 Days #30 capsule 01/13/20 Unknown Rx [Integra Plus Capsule] Allergies Allergy/AdvReac Type Severity Reaction Status Date / Time ciprofloxacin [From Cipro] Allergy Unknown Verified 02/04/19 18:09 ED Review of Systems ROS: Stated complaint: FEELING FAINT/DIZZINESS Other details as noted in HPI Constitutional: denies: chills, fever Eyes: denies: eye pain, eye discharge, vision change ENT: denies: ear pain, throat pain Respiratory: denies: cough, shortness of breath, wheezing Cardiovascular: denies: chest pain, palpitations Endocrine: no symptoms reported Gastrointestinal: denies: abdominal pain, nausea, diarrhea Genitourinary: denies: urgency, dysuria, discharge Musculoskeletal: denies: back pain, joint swelling, arthralgia Skin: denies: rash, lesions Neurological: as per HPI. 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 Morbid Obesity - Surgical History Past Surgical History?: Yes Additional Surgical History: LAP of cyst on ovary - Family History Family history: no significant - Social History Smoking Status: Never Smoker Substance Use Type: None - Medications Home Medications: Home Medications Medication Instructions Recorded Confirmed Last Taken Type Aspirin [Aspirin BABY CHEW TAB] 81 mg PO QDAY #30 tab.chew 10/23/18 Unknown Rx Furosemide [Lasix TAB] 20 mg PO QDAY 5 Days #5 tablet 05/03/19 Unknown Rx Sulfamethoxazole/Trimethoprim 1 each PO BID 5 Days #10 tablet 05/03/19 Unknown Rx [Bactrim DS TAB] Iron Fum,Ps/Folic/Bcomp,C No.9 1 each PO DAILY 30 Days #30 capsule 01/13/20 Unknown Rx [Integra Plus Capsule] ED Physical Exam - General Limitations: No Limitations General appearance: alert, in no apparent distress, obese - Head Head exam: Present: atraumatic, normocephalic - Eye Eye exam: Present: normal appearance, PERRL Pupils: Present: normal accommodation - ENT ENT exam: Present: mucous membranes moist - Neck Neck exam: Present: normal inspection - Respiratory Respiratory exam: Present: normal lung sounds bilaterally. Absent: respiratory distress - Cardiovascular Cardiovascular Exam: Present: regular rate, normal rhythm. Absent: systolic murmur, diastolic murmur, rubs, gallop - GI/Abdominal GI/Abdominal exam: Present: soft, normal bowel sounds - Extremities Exam Extremities exam: Present: normal inspection - Back Exam Back exam: Present: normal inspection - Neurological Exam Neurological exam: Present: alert, oriented X3 - Psychiatric Psychiatric exam: Present: normal affect, normal mood - Skin Skin exam: Present: warm, dry, intact, normal color. Absent: rash ED Course Vital Signs 01/12/20 01/13/20 01/13/20 23:41 01:41 01:50 Temperature 98.6 F Pulse Rate 108 H 98 H Respiratory 20 15 20 Rate Blood Pressure 155/76 Blood Pressure 151/85 [Left] O2 Sat by Pulse 91 97 97 Oximetry - Reevaluation(s) Reevaluation #1: Patient states he is feeling better. Patient has received a half a liter of fluids. Patient will receive the rest of the fluids and then be discharged. I discussed all results and clinical findings with patient. I discussed plan of care with patient. Patient agrees with plan of care. Patient is stable for discharge. Patient will be discharged home. Patient given discharge instructions. Patient voiced understanding of discharge instructions. 01/13/20 03:45 ED Medical Decision Making - Lab Data Result diagrams: 01/13/20 00:00 01/13/20 00:00 - Radiology Data Radiology results: report reviewed CT head/brain wo con INDICATION / CLINICAL INFORMATION: Lightheadedness / Dizziness x 1 day.. TECHNIQUE: Axial CT imaging of the brain was obtained without contrast. Coronal and sagittal reformatted imaging obtained and reviewed. All CT scans at this location are performed using CT dose reduction for ALARA by means of automated exposure control. COMPARISON: Prior head CT, 10/20/2018 FINDINGS: No intracranial hemorrhage, mass, or midline shift is noted. No extra-axial fluid collection or suggestion of acute territorial infarction. Ventricular system and basilar cisterns are normal. No evidence for acute ischemia. Visualized paranasal sinuses and mastoid air cells are well aerated and clear. No calvarial abnormality of significance. IMPRESSION: 1. Negative noncontrasted head CT scan. - Medical Decision Making Patient is a 44-year-old female that presents emergency room with complaints of dizziness and lightheadedness. Patient's symptoms pretty much occur when the patient is outside in the heat or in a hot environment. Patient's had the symptoms for 3 weeks. Patient was already seen at [facility] for these exact symptoms and discharged. Patient stated at [facility] they gave her fluids and improved her symptoms. Patient had labs done here which were essentially unremarkable but consistent with a mild dehydration and anemia. Patient given fluids and her symptoms improved. Patient's on Coumadin and we checked her INR and it was 1.29. Patient will need to follow-up with a field mechanic/site lead or primary care for management of her Coumadin and her Coumadin doses. Patient had a head CT for her dizziness and it was negative for acute findings. Patient is stable for discharge. Patient discharged home. Patient given discharge directions. - Differential Diagnosis Warfarin therapy, dizziness, ICH, dehydration, electrolyte imbalance Critical care attestation.: If time is entered above; I have spent that time in minutes in the direct care of this critically ill patient, excluding procedure time. ED Disposition Clinical Impression: Dizziness, Dehydration, Warfarin anticoagulation Anemia Qualifiers: Anemia type: unspecified type Qualified Code(s): D64.9 - Anemia, unspecified Disposition: DC-01 TO HOME OR SELFCARE Is pt being admited?: No Does the pt Need Aspirin: No Condition: Stable Instructions: Iron Rich Diet (ED), Iron Deficiency Anemia (ED), Near Syncope (ED), Lightheadedness (ED), Dizziness (ED), Anemia (ED) Additional Instructions: Patient to follow-up with primary care in 2 to 3 days. Patient to follow-up with field mechanic/site lead in 2 to 3 days. Patient to follow-up with a neurologist in 2 to 3 days. Patient to rest. Patient to increase water. Patient to avoid strenuous exercise or heavy lifting until cleared by field mechanic/site lead. Patient to eat a low-salt diet. Patient to eat a Coumadin diet. Patient to take continue all medications.. Patient to take meds as directed. Patient to return to the ER if condition worsens, changes or new symptoms arise. Prescriptions: Iron Fum,Ps/Folic/Bcomp,C No.9 [Integra Plus Capsule] 1 each PO DAILY 30 Days #30 capsule Referrals: SANTO GAMBLE MD [Primary Care Provider] - 2-3 Days KIMI ESPINOZA MD [Staff Physician] - 2-3 Days AMANDA CARROLL MD [Staff Physician] - 2-3 Days ANNA SETHI MD [Staff Physician] - 2-3 Days Time of Disposition: 04:11
[2020-01-13 01:54] VITALS: BP 151/85
[2020-01-13 02:13] LABS: INR 1.29 (0.87-1.13)
--- NOTE | 2020-01-13 02:24 | Cat Scan Report ---
CT head/brain wo con INDICATION / CLINICAL INFORMATION: Lightheadedness / Dizziness x 1 day.. TECHNIQUE: Axial CT imaging of the brain was obtained without contrast. Coronal and sagittal reformatted imaging obtained and reviewed. All CT scans at this location are performed using CT dose reduction for XAVI [place] by means of automated exposure control. COMPARISON: Prior head CT, 10/20/2018 FINDINGS: No intracranial hemorrhage, mass, or midline shift is noted. No extra-axial fluid collection or sugge stion of acute territorial infarction. Ventricular system and basilar cisterns are normal. No evidenc e for acute ischemia. Visualized paranasal sinuses and mastoid air cells are well aerated and clear. No calvarial abnormali ty of significance. IMPRESSION: 1. Negative noncontrasted head CT scan. Signer Name: Dana Klein MD Signed: 01/13/2020 2:20 AM Workstation Name: [id number]
== END 2020-01-13 05:38 | disposition home or self-care (01) ==
LOC: ED 23:32
DX: E86.0 Dehydration (principal); D64.9 Anemia, unspecified; I10 Essential (primary) hypertension; Z88.1 Allergy status to other antibiotic agents; Z79.899 Other long term (current) drug therapy
CPT/HCPCS: 36415; 70450; 80053; 85025; 85610; 96360; 99284; J7030